=== PATIENT | female | born 1965 | race Caucasian/White ===

== ENCOUNTER 2017-02-16 18:38 | Observation (INO) ==
--- NOTE | 2017-02-16 18:53 | Emergency Department Note ---
Disposition Clinical Impression: Renal insufficiency, Uncontrolled hypertension, Headache, Blurry vision, bilateral, UTI (urinary tract infection), Chest pain, Cardiac murmur, Family history of hypertrophic cardiomyopathy Disposition: Admitted As Inpatient Referrals: Shabana Rodarte MD [Primary Care Provider] - General Adult HPI - General Stated complaint: blurry vision, jaw and shoulder pain Time Seen by Provider: 02/16/17 18:46 - History of Present Illness HPI Narrative: 51-year-old female reports emergency department concerned with left-sided chest pain radiating to the left arm started earlier today. The patient also describes blurry vision and headache. She has no history of coronary disease, DVT PE or cancer. The patient is not known to be diabetic. She does have a history of high blood pressure. The patient's has had no head trauma neck stiffness rash fever or convulsion no trouble walking talking hearing seeing or speaking. There is no history of runny nose or ear pain or sore throat. No cough coughing up blood leg swelling or pain or syncope. The patient denies abdominal pain vomiting or diarrhea. She has been somewhat anxious. There is no history of currently. 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 The pain in her left shoulder and chest are not associated with movement or breathing in and out. There is no history of slurred speech or confusion. There is no history of rash. The headache did not reach maximal intensity rapidly. She states her father has a history of HCOM, she denies any history of same, she has had an ultrasound in the past. The patient describes her vision is blurry, she does not usually wear contact lenses, she does not describe pain. There is no history of discharge redness or diplopia. The patient does not describe hemianopsia or difficulty moving the eyes. She states she thinks her high blood-pressure is affecting her vision. - Related Data Allergies Allergy/AdvReac Type Severity Reaction Status Date / Time ciprofloxacin [From Cipro] Allergy See Verified 02/16/17 19:34 Comments meperidine [From Demerol] Allergy Vomiting Verified 02/16/17 19:34 Tricyclic Compounds Allergy Rash Verified 02/16/17 19:34 All systems ED: reviewed and negative except as stated. Past Medical History - Past Medical History Medical history: Reports: hypertension Physical Exam - General Limitations: no limitations General appearance: alert, in no apparent distress - Head Head exam: atraumatic, normocephalic, normal inspection - Eye Eye exam: Present: normal appearance, PERRL, EOMI - ENT ENT exam: normal exam, normal oropharynx, mucous membranes moist, TM's normal bilaterally, normal external ear exam - Neck Neck exam: Present: normal inspection, full ROM, trachea midline. Absent: tenderness - Chest Chest inspection: Present: symmetric chest wall rise. Absent: tenderness - Respiratory Respiratory exam: Present: normal lung sounds bilaterally. Absent: respiratory distress, accessory muscle use, prolonged expiratory phase - Cardiovascular Cardiovascular exam: Present: regular rate, normal rhythm, systolic murmur - Abdominal Exam Abdominal exam: Present: soft, Non-Tender, normal bowel sounds. Absent: tenderness, distention, guarding, rebound, rigidity, pulsatile mass - Extremities Exam Extremities exam: Present: normal inspection, full ROM, normal capillary refill. Absent: tenderness, pedal edema, joint swelling, calf tenderness - Expanded Lower Extremity Exam Lower leg exam: Absent: Homans' sign Neurovascular/Tendon exam: Present: normal capillary refill. Absent: motor deficit, sensory deficit, tendon deficit, extremity cold to touch, pallor - Back Exam Back exam: Present: normal inspection, full ROM. Absent: tenderness, CVA tenderness (R), CVA tenderness (L), vertebral tenderness - Neurological Exam Neurological exam: Present: alert, oriented X3, CN II-XII intact. Absent: motor sensory deficit - Psychiatric Psychiatric exam: Present: normal affect, normal mood - Skin Skin exam: Present: warm, dry, intact, normal color. Absent: rash, cyanosis, diaphoresis, erythema, pallor, mottled Course Vital Signs Temperature 98.3 F 02/16/17 18:43 Pulse Rate 91 02/16/17 18:43 Respiratory Rate 16 02/16/17 18:43 Blood Pressure 185/122 02/16/17 18:43 O2 Sat by Pulse Oximetry 100 02/16/17 18:43 Temperature 98.3 F 02/16/17 18:43 Pulse Rate 62 02/16/17 21:08 Respiratory Rate 16 02/16/17 21:08 Blood Pressure 146/95 02/16/17 21:08 O2 Sat by Pulse Oximetry 100 02/16/17 21:08 Oxygen Delivery Oxygen Delivery Room Air Medical Decision Making - MDM Narrative Medical decision making narrative: The patient is expressing chest pain radiating to the left. The patient's blood pressure is significantly elevated. She has also had blurry vision. Her symptomatology may be secondary to elevated blood pressure however the differential is complex. Initial CT scans with IV contrast were ordered to evaluate the vasculature of the brain and neck and chest over the patient's creatinine was elevated so this was deferred. CT head without contrast negative , chest x-ray negative. EKG negative, cardiac labs negative. Aspirin ordered. Given the patient has essentially uncontrolled hypertension, neurologic symptomatology and chest pain with no previous cardiac stress test or heart catheter, I thought it would be appropriate to admit the patient for further evaluation. In addition the patient appears to have a UTI, her father has a history of hypertropic cardiomyopathy and the patient has a heart murmur on auscultation, she states the heart murmur is new. Labetalol was given in the ED as well as Dilaudid and Zofran. The patient's blood pressure did decrease to a significant degree. Rocephin ordered IV. I discussed the case with the hospitalist on-call who has excepted the patient to their care. The patient is currently stable. - Lab Data Lab results reviewed: Yes I reviewed the patient's lab results. Result diagrams: 02/16/17 18:53 02/16/17 18:53 Lab Results 02/16/17 02/16/17 02/16/17 Range/Units 18:50 18:53 18:53 WBC 4.8 (4.3-11.1) K/mcL RBC 4.84 (3.82-4.97) M/mcL Hgb 14.1 (11.5-15.4) g/dL Hct 42.6 (35.3-44.9) % MCV 88.0 (83.0-100.0) fL MCH 29.1 (28.0-33.3) pg MCHC 33.1 (31.6-35.5) g/dL RDW 12.9 (11.5-14.5) % Plt Count 152 (140-400) K/mcL MPV 10.6 (9.4-12.4) fL Immature Gran % 0.4 (0-4) % Seg Neutrophils % 61.0 % Lymphocytes % 29.8 % Monocytes % 6.9 % Eosinophils % 1.5 % Basophils % 0.4 % Neutrophils # 2.9 (1.6-8.9) K/mcL Lymphocytes # 1.4 (0.6-4.6) K/mcL Monocytes # 0.3 (0.0-1.3) K/mcL Eosinophils # 0.1 (0.0-0.6) K/mcL Basophils # 0.0 (0.0-0.2) K/mcL Sodium (136-145) mEq/L Potassium (3.5-4.5) mEq/L Chloride (98-109) mEq/L Carbon Dioxide (19-29) mEq/L BUN (7-20) mg/dL Creatinine (0.57-1.11) mg/dL Est GFR ( Amer) (> 60) Est GFR (Non-Af Amer) (> 60) BUN/Creatinine Ratio (6-26) Glucose (70-99) mg/dL Calculated Osmolality (280-300) Lactic Acid 1.4 (0.5-2.2) mmol/L Calcium (8.6-10.8) mg/dL Magnesium (1.6-2.6) mg/dL Total Bilirubin (0.2-1.2) mg/dL Direct Bilirubin (0.0-0.5) mg/dL Indirect Bilirubin (0.0-1.2) mg/dL AST (5-34) Units/L ALT (0-55) Units/L Alkaline Phosphatase (38-126) Units/L Troponin I 0.00 (0-0.03) ng/mL C-Reactive Protein (Less than 5) mg/L Serum Total Protein (6.0-8.3) g/dL Albumin (3.5-5.0) g/dL Globulin (2.4-3.5) g/dL Albumin/Globulin Ratio (1.1-2.2) Lipase (8-78) Units/L Urine Color (Yellow) Urine Clarity (Clear) Urine pH (5.0-8.0) pH Units Ur Specific [place] (1.010-1.025) Urine Protein (Neg-Trace) mg/dL Urine Glucose (UA) (Normal) mg/dL Urine Ketones (Negative) mg/dL Urine Blood (Negative) Urine Nitrite (Negative) Urine Bilirubin (Negative) Urine Urobilinogen (Normal) mg/dL Ur Leukocyte Esterase (Negative) Urine Microscopic RBC (0-3) per hpf Urine Microscopic WBC (0-3) per hpf Ur Squamous Epith Cells (None-Few) per lpf Urine Bacteria (None-Few) per hpf Hyaline Casts (None-Few) per lpf Ur Culture Indicated? (NO) Urine Opiates Screen (Rclpfi=989) ng/mL Ur Barbiturates Screen (Lzbthw=511) ng/mL Ur Phencyclidine Scrn (Cutoff=25) ng/mL Ur Amphetamines Screen (Ztisds=5859) ng/mL U Benzodiazepines Scrn (Yfxjpf=631) ng/mL Urine Cocaine Screen (Cutoff= 300) ng/mL U Marijuana (THC) Screen (Cutoff = 50) ng/mL 02/16/17 02/16/17 02/16/17 Range/Units 18:53 19:30 19:30 WBC (4.3-11.1) K/mcL RBC (3.82-4.97) M/mcL Hgb (11.5-15.4) g/dL Hct (35.3-44.9) % MCV (83.0-100.0) fL MCH (28.0-33.3) pg MCHC (31.6-35.5) g/dL RDW (11.5-14.5) % Plt Count (140-400) K/mcL MPV (9.4-12.4) fL Immature Gran % (0-4) % Seg Neutrophils % % Lymphocytes % % Monocytes % % Eosinophils % % Basophils % % Neutrophils # (1.6-8.9) K/mcL Lymphocytes # (0.6-4.6) K/mcL Monocytes # (0.0-1.3) K/mcL Eosinophils # (0.0-0.6) K/mcL Basophils # (0.0-0.2) K/mcL Sodium 140 (136-145) mEq/L Potassium 3.8 (3.5-4.5) mEq/L Chloride 104 (98-109) mEq/L Carbon Dioxide 25 (19-29) mEq/L BUN 16 (7-20) mg/dL Creatinine 1.49 H (0.57-1.11) mg/dL Est GFR ( Amer) 44 L (> 60) Est GFR (Non-Af Amer) 37 L (> 60) BUN/Creatinine Ratio 11 (6-26) Glucose 129 H (70-99) mg/dL Calculated Osmolality 293 (280-300) Lactic Acid (0.5-2.2) mmol/L Calcium 9.8 (8.6-10.8) mg/dL Magnesium 2.4 (1.6-2.6) mg/dL Total Bilirubin 0.6 (0.2-1.2) mg/dL Direct Bilirubin 0.2 (0.0-0.5) mg/dL Indirect Bilirubin 0.4 (0.0-1.2) mg/dL AST 16 (5-34) Units/L ALT 11 (0-55) Units/L Alkaline Phosphatase 116 (38-126) Units/L Troponin I (0-0.03) ng/mL C-Reactive Protein 4 (Less than 5) mg/L Serum Total Protein 8.1 (6.0-8.3) g/dL Albumin 4.4 (3.5-5.0) g/dL Globulin 3.7 H (2.4-3.5) g/dL Albumin/Globulin Ratio 1.2 (1.1-2.2) Lipase 17 (8-78) Units/L Urine Color Yellow (Yellow) Urine Clarity Clear (Clear) Urine pH 6.0 (5.0-8.0) pH Units Ur Specific [place] 1.011 (1.010-1.025) Urine Protein Negative (Neg-Trace) mg/dL Urine Glucose (UA) Normal (Normal) mg/dL Urine Ketones Negative (Negative) mg/dL Urine Blood Negative (Negative) Urine Nitrite Positive A (Negative) Urine Bilirubin Negative (Negative) Urine Urobilinogen Normal (Normal) mg/dL Ur Leukocyte Esterase Small H (Negative) Urine Microscopic RBC 5-15 H (0-3) per hpf Urine Microscopic WBC 15-30 H (0-3) per hpf Ur Squamous Epith Cells Many H (None-Few) per lpf Urine Bacteria Many H (None-Few) per hpf Hyaline Casts None Seen (None-Few) per lpf Ur Culture Indicated? YES A (NO) Urine Opiates Screen Negative (Nuezjf=427) ng/mL Ur Barbiturates Screen Negative (Wbdbqf=970) ng/mL Ur Phencyclidine Scrn Negative (Cutoff=25) ng/mL Ur Amphetamines Screen Negative (Fecjky=8710) ng/mL U Benzodiazepines Scrn Negative (Osxtae=025) ng/mL Urine Cocaine Screen Negative (Cutoff= 300) ng/mL U Marijuana (THC) Screen Negative (Cutoff = 50) ng/mL - Radiology Data Radiology results reviewed: Yes I reviewed the patient's radiology results.
[2017-02-16 19:03] LABS: Basophils % 0.4 %; Eosinophils # 0.1 K/mcL (0.0-0.6); Eosinophils % 1.5 %; Hematocrit 42.6 % (35.3-44.9); Hemoglobin 14.1 g/dL (11.5-15.4); Immature Granulocytes % 0.4 % (0-4); Lymphocytes # 1.4 K/mcL (0.6-4.6); Lymphocytes % 29.8 %; Mean Corpuscular HGB Conc 33.1 g/dL (31.6-35.5); Mean Corpuscular Hemoglobin 29.1 pg (28.0-33.3); Mean Platelet Volume 10.6 fL (9.4-12.4); Monocytes # 0.3 K/mcL (0.0-1.3); Monocytes % 6.9 %; Neutrophils # 2.9 K/mcL (1.6-8.9); Platelet Count 152 K/mcL (140-400); Red Blood Count 4.84 M/mcL (3.82-4.97); Red Cell Distribution Width 12.9 % (11.5-14.5)
[2017-02-16] MEDS ORDERED: *HR* HYDROmorphone (PF) 1 MG/ML SYRINGE IVP ONE ×2 (19:16→21:28)
[2017-02-16] MEDS ORDERED: Ondansetron 4 MG/2 ML VIAL IVP ONE (19:16)
[2017-02-16 19:21] LABS: Albumin 4.4 g/dL (3.5-5.0); Albumin/Globulin Ratio 1.2 (1.1-2.2); Bilirubin,Direct 0.2 mg/dL (0.0-0.5); Bilirubin,Indirect 0.4 mg/dL (0.0-1.2); Bilirubin,Total 0.6 mg/dL (0.2-1.2); Calcium 9.8 mg/dL (8.6-10.8); Globulin 3.7 g/dL (2.4-3.5); Magnesium 2.4 mg/dL (1.6-2.6); Potassium 3.8 mEq/L (3.5-4.5); Total Protein 8.1 g/dL (6.0-8.3)
[2017-02-16] MEDS ORDERED: 0.9 % Sodium Chloride 1,000 ML IVC ONE (19:22)
[2017-02-16 19:42] LABS: Bilirubin,Urine Negative (Negative); Blood,Urine Negative (Negative); Clarity,Urine Clear (Clear); Color,Urine Yellow (Yellow); Glucose,Urine (UA) Normal (Normal); Ketones,Urine Negative (Negative); Leukocyte Esterase,Urine Small (Negative); Nitrite,Urine Positive (Negative); Protein,Urine Negative (Neg-Trace); Specific Gravity,Urine 1.011 (1.010-1.025); Urobilinogen,Urine Normal (Normal)
[2017-02-16 19:43] LABS: Bacteria,Urine Many per hpf (None-Few); Hyaline Casts,Urine None Seen per lpf (None-Few); Squamous Epithelial Cell,Urine Many per lpf (None-Few); WBC,Urine 15-30 per hpf (0-3)
[2017-02-16 19:47] LABS: Amphetamine Screen,Urine Negative ng/mL (Cutoff=1000); Barbiturate Screen,Urine Negative ng/mL (Cutoff=200); Benzodiazepines Screen,Urine Negative ng/mL (Cutoff=200); Cannabinoid Screen,Urine Negative ng/mL (Cutoff = 50); Cocaine Screen,Urine Negative ng/mL (Cutoff= 300); Opiate Screen,Urine Negative ng/mL (Cutoff=300); Phencyclidine Screen,Urine Negative ng/mL (Cutoff=25)
[2017-02-16] MEDS ORDERED: *HR* Labetalol 20 MG/4 ML SYRINGE IVP ONE (20:17)
[2017-02-16] MEDS ORDERED: Aspirin 325 MG TABLET PO ONE (21:19)
--- NOTE | 2017-02-16 22:03 | Internal Med History&Physical ---
<ValentinDougienabil R - Last Filed: 02/17/17 05:09> Date of Encounter: 02/16/17 Internal Medicine - H&P: HPI History of present illness: Ms. Augustine is a 51 year old female Internal Medicine - H&P: Meds Albuterol Sulfate [Proair Hfa] 2 puff IH Q4-6H PRN 02/16/17 [History] Bupropion HCl [Wellbutrin Xl] 450 mg PO HS 02/16/17 [History] CloNIDine HCl 0.1 mg PO HS 02/16/17 [History] Gabapentin [Neurontin] 300 mg PO BID 02/16/17 [History] Meloxicam [Mobic] 15 mg PO HS 02/16/17 [History] OxyCODONE/APAP 10/325 [Percocet 10/325 MG] 7.5 mg PO Q6HR PRN 02/16/17 [History] Tizanidine HCl 4 - 8 mg PO TID PRN 02/16/17 [History] Calcium Carbonate [Calcium] 1,200 mg PO HS 02/17/17 [History] Fexofenadine HCl [Allergy Relief] 180 mg PO HS 02/17/17 [History] Lisinopril [Zestril] 20 mg PO HS 02/17/17 [History] Multivitamin [One Daily Essential] 1 each PO HS 02/17/17 [History] OxyCODONE/APAP 7.5/325 [Percocet 7.5/325 MG] 1 each PO Q6HR PRN 02/17/17 [ History] Temazepam [Restoril] 30 mg PO HS 02/17/17 [History] Allergies ciprofloxacin [From Cipro] Allergy (Verified 02/16/17 19:34) See Comments meperidine [From Demerol] Allergy (Verified 02/16/17 19:34) Vomiting Tricyclic Compounds Allergy (Verified 02/16/17 19:34) Rash All Systems PM: A 10-system review of systems was performed and is negative for pertinent findings except as documented above in the HPI. - Constitutional Vitals: Temp Pulse Resp BP Pulse Ox 97.9 F 61 18 169/90 97 02/17/17 02:32 02/17/17 02:32 02/17/17 02:32 02/17/17 02:32 02/17/17 02:32 Internal Med - H&P Results - Labs CBC & Chem 7: 02/16/17 18:53 02/16/17 18:53 - Attending Attestation I performed history and physical examination of the patient and discussed management with the Resident. I reviewed the Residents note and agree with documented findings and plan of care. 51 Y/F with h/o Fibromyalgia, HTN presents with left shoulder pain with radiation to the left arm, constant since staring this afternoon. Had sharp chest pain while she was in the CT scan. Reports facial pain / headache and jaw pain. Family h/o CAD grand father of heart attack (?age); grand mother had CAD. O/E: Cardiac: Regular rate and rhythm. Systolic murmur present. Lungs clear to auscultation. There is tenderness in the frontal area bilaterally and right maxillary area. No neck stiffness. No tenderness of the shoulder, movements not restricted. EKG personally reviewed by me shows some sinus rhythm and T wave inversion in lead 3. CXR and CT head are negative. Troponin is negative. Urinalysis is positive for UTI. A/P: Chest pain / shoulder pain: Atypical. Cardiac monitoing. Trend troponin if negative, consider cardiac stress test. X-ray of the left shoulder. Facial pain: CT head is negative for sinusitis. Denies recent h/o migraines. Monitor UTI: started on ceftriaxone <Poncho Gordon - Last Filed: 02/17/17 09:37> Date of Encounter: 02/16/17 Time of Encounter: 22:03 Assessment and Plan (1) Headache Current visit: Yes Status: Acute -Frontal Bilateral, constant sharp pain. Diffused. No FNLD and CT head normal -Tension headache? However, tension RAMSEY normally not sharp. Doubt cluster headache, not complaining of sharp stabbing pain in one eye and not unilateral. Migraine? Is senstive to light and history of migraine RAMSEY. Pain is reproducible on palpation, however doubt sinus infection-no fever, WBC, recent infection. -Has improved since admission and pain control Plan -d/c dilaudid and give tramadol due to renal function -Continue fluids -If not improved with tramadol, then consider RAMSEY cocktail. Qualifiers: Headache type: unspecified Headache chronicity pattern: unspecified pattern Intractability: intractable Qualified Code(s): R51 - Headache (2) Uncontrolled hypertension Current visit: Yes Status: Acute -Was 180's/120's in ED. Has improved with labetalol, pain medication, fluids. -Takes MARY and clonidine at home. States she is compliant. Does not know home medications or dose -Need to call [facility] on [address] to restart home medications -Has been under a lot of stress lately. -HTN most likely from stress vs dehydration vs pain vs medication adjustment needed. Plan -Hold clonidine for now. Continue labetalol and fluids. -residential monitor -Get home medication confirmation at [facility] (in morning) (3) Blurry vision, bilateral Current visit: Yes Status: Acute -CT head normal. No FNLD and passed vision test. Has improved since admission to hospital, but currently present -Doubt Multiple sclerosis, acute intracranial pathology, mass effect, infections source. Plan -Continue current plan. No neurology consult needed at this time. (4) UTI (urinary tract infection) Current visit: Yes Status: Acute -Discovered on UA. Hx kidney stones. Elevated Cr. Asymptomatic. However, will treat. Plan -Continue IV rocephin 1g q 12. -Consider oral abx if hospital stay <3d Qualifiers: Urinary tract infection type: site unspecified Hematuria presence: without hematuria Qualified Code(s): N39.0 - Urinary tract infection, site not specified (5) Chest pain Current visit: Yes Status: Acute -EKG negative. Troponin 0 -Last a few minutes while getting CT of head. Anxiety related? -Patient does not have hx of CAD, no FHx of sudden cardiac , not a smoker. Lipids unknown -New murmur? Father with hx of HCOM. Last ECHO "few years ago" -Patient is not ACS rule out. No need for stress test or cardio consult at this time. Plan -ECHO, redraw trop, lipid panel -Telemetry monitoring Qualifiers: Chest pain type: unspecified Qualified Code(s): R07.9 - Chest pain, unspecified (6) Cardiac murmur Current visit: Yes Status: Acute -See above for CP -No history of previous IV drug use. FHx of HCOM Plan -ECHO (7) Family history of hypertrophic cardiomyopathy Current visit: Yes Status: Acute see above -echo (8) DVT prophylaxis Current visit: Yes Status: Acute -ER doctor had concern for dissection and patient complained of substernal chest pain that radiated to back for a few minutes. She is resting comfortably in bed. No FND, CP, SOB, hypotension so doubt dissection. However, will hold anticoagulation at this time. -Consider starting in the morning if patient still asymptomatic. (9) Renal insufficiency Current visit: Yes Status: Acute -Cr 1.26 on 12/30 and now 1.49. New baseline or acute problem? History of Kidney stones of uncontrolled HTN. -No complaints of flank pain or urinary symptoms -Does take MARY at home. Unknown drug or dose -Will use tramadol at this time for pain and hold off on ibuprofen and other renal toxic drugs -Will continue fluids. -Consider renal ultrasound if Cr not improve with fluids to evaluate for new renal pathology contributing to HTN and elevated Cr (10) Shoulder pain, left Current visit: Yes Status: Acute -Patient laying on L side during exam. Not in distress. Good range of motion. No pain on palpation. Normal strength in arms, hands. Peripheral pulses +2/4 Plan -No imaging or workup needed at this time. Qualifiers: Chronicity: acute Qualified Code(s): M25.512 - Pain in left shoulder Internal Medicine - H&P: HPI Chief complaint: Blurry Vision, Jaw and shoulder pain Admitted From: Emergency Dept Plans for Post Hospital Care: Home History of present illness: Ms. Augustine is a 51 year old female, PMH Fibromyalgia, HTN, c/c L sided shoulder pain radiating down L arm, bilateral blurry vision, headache. Around 2pm this afternoon while driving patient began to have L shoulder pain that radiated down arm. She then began to develop bilateral blurry vision then headache then L sided jaw pain. Headache discribed at bilateral, frontal, hurts from forehead to the maxillary sinuses. Described as sharp pain, constant. Nothing alleviates pain. Worse with applying pressure, photosensitivity. Hx of migraine RAMSEY. Blurry vision is whole vision field in both eyes. While undergoing CT of chest in the ED, patient began to develop substernal chest pain that radiated to the back that has since alleviated. No history or coronary disease, DVT, PE or cancer, diabetes. Admits to previous nausea. Currently denies weakness/parasthesia/FNLD/confusion/V/F/CP/SOB/ Jaw pain or neck pain/diarrhea/ abdominal pain/flank pain/urinary symptoms. Father has HCOM. Denies smoking or being previous smoker, alcohol use current or in past, no IV drug use. 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 Has been under a lot of stress lately. Past Med Surg Social Fam HX - Past Medical History Medical history: fibromyalgia, hypertension, other (ovarian cyst ) Psychiatric history: depression - Past Surgical History Surgical History: (4 times), cholecystectomy - Social History Smoking Status: Never smoker Alcohol use: none Drug use: none - Family History Mother Hx Family Cardiac Disorders: Yes (HTN) - Additional Family History Additional family history: Father has HCOM. No sudden in family. All Systems PM: A 10-system review of systems was performed and is negative for pertinent findings except as documented above in the HPI. - Constitutional Constitutional: as per HPI - EENT Eyes: change in vision, photophobia, no discharge, no pain - Cardiovascular Cardiovascular ROS IM: as per HPI - Respiratory Respiratory: as per HPI - Genitourinary Genitourinary: as per HPI - Neurological Neurological ROS: as per HPI - Psychiatric Psychiatric: as per HPI - Constitutional Vitals: Temp Pulse Resp BP Pulse Ox 98.3 F 65 16 144/99 100 02/16/17 18:43 02/16/17 21:40 02/16/17 21:58 02/16/17 21:58 02/16/17 21:40 General appearance: Present: A&O X 3, no acute distress, answers questions appropriately - Head Head exam: Present: atraumatic, normocephalic Additional comments: reproduce of pain with palpation of forehead,maxillary sinus. - Eye Eye exam: Present: PERRL, conjuntiva pink, sclera anicteric Pupils: Present: PERRL - Neck Neck exam general surgery: Present: supple, trachea midline. Absent: lymphadenopathy Additional comments: No carotid bruits. - Respiratory Respiratory exam: Present: CTAB. Absent: accessory muscle use, rales, rhonchi, wheezes - Cardiovascular Cardiovascular exam: Present: RRR Additional comments: Was told systolic murmur by physician. I personally could not hear a systolic murmur. - GI/Abdominal GI/Abdominal exam: Present: soft, no peritoneal signs. Absent: distended, tenderness - Extremities Exam Extremities exam: Present: normal inspection, warm, radial pulses palpable and symetrical. Absent: calf tenderness, cyanotic, pedal edema, tenderness Additional comments: patient laying on L side comfortably - Expanded Upper Extremities Exam Shoulder exam: Present: full ROM, normal inspection. Absent: abrasion, ecchymosis, erythema, swelling, tenderness Upper Arm exam: Present: normal inspection Elbow exam: Present: normal inspection Forearm wrist exam: Present: normal inspection Hand wrist exam: Present: normal inspection Vascular exam: Present: normal capillary refill - Neurological Exam Neurological exam: Present: alert, CN II-XII intact, oriented X3, reflexes normal, no focal deficits, strengths equal and symetr throughout, pronater drift. Absent: facial droop, speech deficit - Psychiatric Psychiatric exam: Present: normal affect, normal mood - Skin Skin exam: Present: dry, intact Internal Med - H&P Results - Labs CBC & Chem 7: 02/17/17 04:39 02/17/17 04:39 Labs: Short CBC 02/16/17 Range/Units 18:53 WBC 4.8 (4.3-11.1) K/mcL Hgb 14.1 (11.5-15.4) g/dL Hct 42.6 (35.3-44.9) % Plt Count 152 (140-400) K/mcL Neutrophils # 2.9 (1.6-8.9) K/mcL BMP 02/16/17 18:53 Sodium 140 Potassium 3.8 Chloride 104 Carbon Dioxide 25 BUN 16 Creatinine 1.49 H Glucose 129 H Calcium 9.8 Cardiac Enzymes 02/16/17 Range/Units 18:53 Troponin I 0.00 (0-0.03) ng/mL Liver Function 02/16/17 Range/Units 18:53 Total Bilirubin 0.6 (0.2-1.2) mg/dL Direct Bilirubin 0.2 (0.0-0.5) mg/dL AST 16 (5-34) Units/L ALT 11 (0-55) Units/L Alkaline Phosphatase 116 (38-126) Units/L Albumin 4.4 (3.5-5.0) g/dL Urine 02/16/17 Range/Units 19:30 Urine Color Yellow (Yellow) Urine Clarity Clear (Clear) Urine pH 6.0 (5.0-8.0) pH Units Ur Specific [place] 1.011 (1.010-1.025) Urine Protein Negative (Neg-Trace) mg/dL Urine Glucose (UA) Normal (Normal) mg/dL - Impressions ITS Impressions Chest X-Ray 02/16/17 19:41 IMPRESSION: No acute abnormality detected. D/ / Michael Mcarthur MD / Michael Mcarthur MD Interpreting Provider: Michael Mcarthur MD Head CT 02/16/17 19:41 IMPRESSION: No acute intracranial abnormality. D/ / Yair Kim MD / Yair Kim MD Interpreting Provider: Yair Kmi MD
[2017-02-16] MEDS ORDERED: Naloxone 0.4 MG/ML INJ IVP PRN (23:18)
[2017-02-16] MEDS ORDERED: Ondansetron 4 MG/2 ML VIAL IVP PRN (23:18)
[2017-02-16] MEDS ORDERED: *HR* Metoprolol 5 MG/5 ML VIAL IVP PRN (23:30)
[2017-02-16] MEDS ORDERED: Ibuprofen 600 MG TABLET PO PRN (23:52)
[2017-02-17] MEDS ORDERED: *HR* Labetalol 20 MG/4 ML SYRINGE IVP PRN (00:02)
[2017-02-17] MEDS ORDERED: traMADol 50 MG TABLET PO PRN (00:03)
[2017-02-17] MEDS ORDERED: *HR* HYDROmorphone (PF) 1 MG/ML SYRINGE IVP ONE (01:10)
[2017-02-17] MEDS: 0.9 % Sodium Chloride 1,000 ML IVC SCH ×2 (01:25→21:24)
[2017-02-17] MEDS: BuPROPion XL (24 HR) 150 MG TABLET PO SCH ×2 (02:36→21:23)
[2017-02-17] MEDS: Multivit/Ca/Min/Fe/FA 1 TAB TABLET PO SCH ×2 (02:36→21:22)
[2017-02-17] MEDS: Gabapentin 300 MG CAPSULE PO SCH ×3 (02:36→21:22)
[2017-02-17] MEDS: Temazepam 15 MG CAPSULE PO SCH ×2 (02:36→21:22)
[2017-02-17] MEDS: Lisinopril 20 MG TABLET PO SCH ×2 (02:36→21:23)
[2017-02-17] MEDS: tiZANidine 4 MG TABLET PO PRN ×2 (02:37→22:45)
[2017-02-17] MEDS: Loratadine 10 MG TABLET PO SCH ×2 (02:37→21:23)
[2017-02-17] MEDS: cloNIDine HCl 0.1 MG TABLET PO SCH ×2 (02:37→21:22)
[2017-02-17 05:28] LABS: Basophils % 0.5 %; Eosinophils # 0.1 K/mcL (0.0-0.6); Hematocrit 34.6 % (35.3-44.9); Immature Granulocytes % 0.3 % (0-4); Lymphocytes # 1.7 K/mcL (0.6-4.6); Lymphocytes % 43.4 %; Mean Corpuscular HGB Conc 32.7 g/dL (31.6-35.5); Mean Corpuscular Hemoglobin 29.7 pg (28.0-33.3); Mean Corpuscular Volume 91.1 fL (83.0-100.0); Mean Platelet Volume 11.2 fL (9.4-12.4); Monocytes # 0.2 K/mcL (0.0-1.3); Platelet Count 110 K/mcL (140-400); Red Cell Distribution Width 12.9 % (11.5-14.5); Segmented Neutrophils % 48.8 %
[2017-02-17 05:40] LABS: Calcium 8.7 mg/dL (8.6-10.8); Phosphorous 3.3 mg/dL (2.3-4.7); Potassium 3.2 mEq/L (3.5-4.5)
[2017-02-17 06:38] LABS: Hemoglobin 11.3 g/dL (11.5-15.4)
[2017-02-17 06:43] LABS: Platelet Estimate Slight Decrease (Normal)
[2017-02-17 08:52] LABS: Thyroid Stimulating Hormone 1.583 mcIU/mL (0.350-4.840)
[2017-02-17] MEDS ORDERED: Potassium Chloride Elixir 20 MEQ/15 ML UDC PO SCH (09:00)
--- NOTE | 2017-02-17 10:09 | ECHO - Doppler Report ---
Echocardiogram Name: Lala Augustine Date of Study: 02/17/2017 Date: 1965 Ht: 62.0 in Medical Record#: [id number] Age: 51 Wt: 157.0 lb Gender: Female BSA: 1.72 Order #: [id number] Location: [facility] Room #: 3B34 Reading Physician: Marky Estevez DO, SHELIA MONTOYA Repairer Hairspring: Pedro Joy RDCS Ordering Physician: Poncho Gordon DO Primary Physician: Shabana Rodarte MD Indications: Chest pain, Murmur Impressions: LVEF 60-65%. Normal LV chamber size, wall thickness and function. Mild left ventricular diastolic dysfunction. Normal right ventricular structure and function. Mild tricuspid regurgitation. No pulmonary hypertension. Left Ventricular Wall Motion: Rest Echo Findings All wall segments showed normal motion. Findings: Study Quality * Technically adequate exam. ECG Findings * Sinus bradycardia. Left Ventricle * LVEF 60-65%. * Normal LV chamber size, wall thickness and function. * Mild left ventricular diastolic dysfunction. Right Ventricle * Normal right ventricular structure and function. Left Atrium * Mildly dilated left atrium. Right Atrium * Normal right atrial size. Interatrial Septum * No evidence of PFO by color Doppler. Aortic Valve * Trileaflet aortic valve with normal function. * No aortic regurgitation. * No aortic stenosis. Mitral Valve * Normal mitral valve structure and function. * No mitral stenosis. * Trace mitral regurgitation. Tricuspid Valve * Normal tricuspid valve structure. * Mild tricuspid regurgitation. * No pulmonary hypertension. Pulmonic Valve * Normal pulmonic valve structure and function. * Trace pulmonic regurgitation. Aorta * Normally sized aortic root. Pericardium * The pericardium appears normal. IVC * Normal IVC dimensions and inspiratory collapse. Pulmonary Artery * Normal visualized portions of the main pulmonary artery. History Hypertension Family History of CAD 08/21/11 a Previous Echo was performed. Measurements: BP: 91/ 62 2D Normal Values RVIDd: 2.73 cm <2.7 cm IVSd: .93 cm 0.6 - 1.0 cm LVIDd: 4.31 cm 3.7 - 5.6 cm LVPWd: .81 cm 0.6 - 1.1 cm LVIDs: 3.18 cm 1.5 - 3.6 cm AO: 2.50 cm < 4.0 cm LA: 3.50 cm 2.0 - 4.0cm %FS: 26.20 cm >25 % LA volume: 41 Mitral Valve Peak E:.78 m/sec Peak A:.80 m/sec E/A Ratio:1 Peak E' Lat Paul:12.9 cm/s Peak E' Med Paul:8.59 cm/s E/E' Lat Ratio:6.1 E/E' Med Ratio:9.1 Tricuspid Valve TV Regurg Peak Grad: 17.00mmHg TV Regurg Peak Paul: 2.08m/sec Updated by Marky Estevez DO, FACCourtney, SHELIA, FASSNEHA on 02/17/2017 10:04:28 AM electronically signed on 02/17/2017 10:05:24 AM with status of Final Wall Motion Hughes: 1=Normal, 2=Hypokinesis, 3=Akinesis, 4=Dyskinesis, 5=Aneurysmal, 6=Hyperkinetic, X=Not Visualized (Blank)=Missing
[2017-02-17] MEDS: *HR* OxyCODONE/APAP 7.5/325 TABLET PO PRN ×3 (10:16→22:45)
--- NOTE | 2017-02-17 14:26 | Electrocardiograph Report ---
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
--- NOTE | 2017-02-17 16:07 | Internal Med Progress Note ---
Date of Encounter: 02/17/17 Time of Encounter: 14:30 - Assessment and plan (1) Chest pain Current Visit: Yes Status: Acute Assessment and plan: During my interaction with her, patient was complaining of left-sided anterior chest pain, left-sided jaw pain, and right-sided headache with blurred vision. Patient had just received her by mouth pain medication and repeat was requesting IV pain medication. She specifically stated that she wanted to avoid morphine and Dilaudid. Dilaudid not indicated at this time. My interaction with her, patient was falling asleep mid sevens and appeared relatively heavily medicated. We will hold IV pain medications at this time and monitor. After she was told she would not be receiving IV pain medication, patient stated that she would like to go home. She was unable to get her stress test today due to hypotension so it has been rescheduled for tomorrow. Patient encouraged to stay to try to figure out the source of her headache and her chest pain. Low suspicion for acute processes however will continue a stress test tomorrow. Chest x-ray negative. Head CT negative. Plain films of her left shoulder negative. Echocardiogram revealing ejection fraction of 60 mL 5% with mild diastolic dysfunction. Patient is euvolemic on examination and denies shortness of breath. ITS Impressions Chest X-Ray 02/16/17 19:41 IMPRESSION: No acute abnormality detected. D/ / Michael Mcarthur MD / Michael Mcarthur MD Interpreting Provider: Michael Mcarthur MD Head CT 02/16/17 19:41 IMPRESSION: No acute intracranial abnormality. D/ / Yair Kim MD / Yair Kim MD Interpreting Provider: Yair Kim MD Shoulder X-Ray 02/17/17 05:06 IMPRESSION: 1. No acute osseous abnormality. 2. Mild AC joint osteoarthritis. D/ / 02/17/2017 09:05:25 Jonel Erazo MD / Argenis Borjas Interpreting Provider: Jonel Erazo MD Qualifiers: Chest pain type: unspecified Qualified Code(s): R07.9 - Chest pain, unspecified (2) Headache Current Visit: Yes Status: Acute Assessment and plan: See prior note for chest pain. Head CT negative. Qualifiers: Headache type: unspecified Headache chronicity pattern: unspecified pattern Intractability: intractable Qualified Code(s): R51 - Headache (3) Blurry vision, bilateral Current Visit: Yes Status: Acute (4) CKD (chronic kidney disease) stage 3, GFR 30-59 ml/min Current Visit: Yes Status: Chronic Assessment and plan: Stable, we will continue to trend (5) Fibromyalgia Current Visit: Yes Status: Chronic Assessment and plan: Patient stating she has chronic and severe fibromyalgia and states that she takes Percocet 7.5 mg every 4 hours as needed at home. OARRS report checks out okay. (6) Uncontrolled hypertension Current Visit: Yes Status: Chronic Assessment and plan: Uncontrolled. At home, patient is on lisinopril 20 mg at bedtime, clonidine 0.1 mg at bedtime. Blood pressure elevated and uncontrolled upon arrival to the hospital. She was given IV labetalol in the emergency department. Slightly better controlled since admission except for this last reading which had her diastolic at 100. She was also in severe pain at that time, we will continue to address her pain and monitor her blood pressure. Will add amlodipine to her regimen. (7) UTI (urinary tract infection) Current Visit: Yes Status: Acute Assessment and plan: Continue ceftriaxone. Urine culture pending. Qualifiers: Urinary tract infection type: site unspecified Hematuria presence: without hematuria Qualified Code(s): N39.0 - Urinary tract infection, site not specified (8) Cardiac murmur Current Visit: Yes Status: Acute Assessment and plan: Echocardiogram unremarkable with ejection fraction of 60-65%. Stress test pending. (9) Family history of hypertrophic cardiomyopathy Current Visit: Yes Status: Chronic (10) DVT prophylaxis Current Visit: Yes Status: Acute Assessment and plan: Subcutaneous heparin ordered (11) Shoulder pain, left Current Visit: Yes Status: Acute Assessment and plan: Unclear causation at this time. Patient states pain is different than her regular pain. Plain films of her shoulder were unremarkable. Stress test tomorrow. Qualifiers: Chronicity: acute Qualified Code(s): M25.512 - Pain in left shoulder - Subjective Interval history: Patient is seen and examined. On examination, patient resting supine in bed. During my interaction with her, patient stating that she had just started to have left-sided chest pain that was followed by left-sided jaw pain and right- sided headache with blurred vision. Patient stating this is the same as her symptoms from yesterday. She states that these areas of pain or new not consistent with her chronic fibromyalgia pain. She also endorses mild shortness of breath with these episodes. - Constitutional Vitals: Temp Pulse Resp BP Pulse Ox 97.9 F 72 16 143/101 95 02/17/17 14:28 02/17/17 14:28 02/17/17 16:00 02/17/17 14:28 02/17/17 16:00 General appearance: Present: A&O X 3, pleasant, no acute distress, answers questions appropriately - Head Head exam: Present: atraumatic, normocephalic - Eye Eye exam: Present: PERRL, conjuntiva pink, sclera anicteric Pupils: Present: PERRL - Neck Neck exam general surgery: Present: supple, trachea midline. Absent: lymphadenopathy - Respiratory Respiratory exam: Present: CTAB. Absent: accessory muscle use, rales, respiratory distress, rhonchi, wheezes - Cardiovascular Cardiovascular exam: Present: RRR, +S1, +S2. Absent: diastolic murmur, gallop, rubs, systolic murmur - GI/Abdominal GI/Abdominal exam: Present: normal bowel sounds, soft, no peritoneal signs. Absent: distended, tenderness - Extremities Exam Extremities exam: Present: warm, radial pulses palpable and symetrical. Absent : calf tenderness, cyanotic, pedal edema - Neurological Exam Neurological exam: Present: alert, altered (Drowsy), CN II-XII intact, oriented X3, no focal deficits, strengths equal and symetr throughout. Absent: pronater drift, facial droop, speech deficit - Skin Skin exam: Present: dry, intact, normal color, warm Internal Medicine: Result - Labs CBC & Chem 7: 02/17/17 04:39 02/17/17 04:39 Labs: Short CBC 02/17/17 Range/Units 04:39 WBC 4.0 L (4.3-11.1) K/mcL Hgb 11.3 L D (11.5-15.4) g/dL Hct 34.6 L (35.3-44.9) % Plt Count 110 L (140-400) K/mcL Neutrophils # 2.0 (1.6-8.9) K/mcL BMP 02/17/17 04:39 Sodium 141 Potassium 3.2 L Chloride 107 Carbon Dioxide 26 BUN 14 Creatinine 1.47 H Glucose 185 H Calcium 8.7 Cardiac Enzymes 02/17/17 Range/Units 04:39 Troponin I 0.00 (0-0.03) ng/mL - Impressions Impressions Shoulder X-Ray 02/17/17 05:06 IMPRESSION: 1. No acute osseous abnormality. 2. Mild AC joint osteoarthritis. D/ / 02/17/2017 09:05:25 Jonel Erazo MD / Argenis Borjas Interpreting Provider: Jonel Erazo MD Consult Discharge Plan - Plan
[2017-02-17] MEDS: amLODIPine 5 MG TABLET PO SCH (17:01)
[2017-02-17] MEDS: *HR* Heparin 5,000 UNIT/ML VIAL SQ SCH (17:01)
[2017-02-18] MEDS: tiZANidine 4 MG TABLET PO PRN ×2 (00:16→16:04)
[2017-02-18] MEDS: *HR* Heparin 5,000 UNIT/ML VIAL SQ SCH ×2 (06:27→17:19)
[2017-02-18] MEDS: 0.9 % Sodium Chloride 1,000 ML IVC SCH ×2 (06:28→15:58)
[2017-02-18 06:33] LABS: Basophils % 0.2 %; Eosinophils # 0.1 K/mcL (0.0-0.6); Eosinophils % 2.2 %; Hematocrit 32.7 % (35.3-44.9); Hemoglobin 10.5 g/dL (11.5-15.4); Immature Granulocytes % 0.5 % (0-4); Lymphocytes # 1.6 K/mcL (0.6-4.6); Lymphocytes % 39.1 %; Mean Corpuscular HGB Conc 32.1 g/dL (31.6-35.5); Mean Corpuscular Hemoglobin 29.1 pg (28.0-33.3); Mean Corpuscular Volume 90.6 fL (83.0-100.0); Mean Platelet Volume 10.9 fL (9.4-12.4); Monocytes # 0.3 K/mcL (0.0-1.3); Monocytes % 6.8 %; Neutrophils # 2.1 K/mcL (1.6-8.9); Platelet Count 125 K/mcL (140-400); Red Blood Count 3.61 M/mcL (3.82-4.97); Segmented Neutrophils % 51.2 %
[2017-02-18 06:58] LABS: Calcium 8.3 mg/dL (8.6-10.8); Potassium 3.6 mEq/L (3.5-4.5)
[2017-02-18] MEDS: Gabapentin 300 MG CAPSULE PO SCH (07:53)
[2017-02-18] MEDS: *HR* OxyCODONE/APAP 7.5/325 TABLET PO PRN ×2 (07:54→16:04)
[2017-02-18] MEDS ORDERED: Ketorolac 30 MG/ML VIAL IVP PRN (08:37)
[2017-02-18] MEDS ORDERED: SUMAtriptan succinate 50 MG TABLET PO PRN (08:37)
--- NOTE | 2017-02-18 11:49 | Nuclear Medicine Stress Report ---
Exercise Nuclear Stress Name: Lala Augustine Date of Study: 02/17/2017 Date: 1965 Ht: 62.0 in Medical Record#: [id number] Age: 51 Wt: 158.0 lb Gender: Female Order #: [id number] Location: [facility] IP Room: Supervising Provider: Scott Campos CNP Reading Physician: Junaid Gan MD, [facility] Ordering Physician: Cecille Vazquez CNP Primary Care Physician: None Stress Technologist: Stefani Hensley NEWS LIBRARIAN, CCT Electric Serviceman: Ramiro Bridges Indications: Chest Pain Impression: The exercise capacity was average. Exercise ECG is negative for ischemia. Gated LVEF > 70%. Perfusion imaging was negative for ischemia or infarct. History: Hypertension Stress Test Summary: Stress Test Type: Treadmill Protocol: Rojelio Baseline Information: Initial Heart Rate: 58 Blood Pressure: 108/70 Stress Information: Stress Time: 7 min 00 sec Test Terminated Due to (primary): Dyspnea Fatigue Maximum Blood Pressure: 166/80 Maximum Heart Rate: 152 Percent Maximum Heart Rate Achieved: 91 Double Product: [id number] METS Reached: 10.1 Symptoms: Shortness of breath, No chest symptoms Nuclear Summary: SPECT myocardial perfusion imaging using Tc99m Sestamibi given intravenously was performed at rest and following cardiac stress testing. The resting images were obtained following initial dose of 10.6 mCi. Following stress an additional dose of 29.3 mCi was given at peak exercise or 30 seconds post regadenoson infusion. Findings: Stress Note * Resting ECG demonstrated sinus bradycardia (58 bpm). * No baseline arrhythmias were noted. * The exercise capacity was average. * Patient had no chest pain during stress. * No arrhythmias were noted during stress. * Exercise ECG is negative for ischemia. Hemodynamic responses * Normal hemodynamic responses to exercise. Study Quality * Study quality is good. Gated EF > 70% * Gated LVEF > 70%. Left Ventricle * The left ventricle is not dilated. * Normal Segmental Perfusion in rest. * Normal segmental perfusion in stress. TID * No evidence of transient ischemic dilatation. Updated by Junaid Gan MD, [facility] on 02/18/2017 11:42:31 AM electronically signed on 02/18/2017 11:43:00 AM with status of Final
[2017-02-18] MEDS: amLODIPine 5 MG TABLET PO SCH (13:25)
[2017-02-18 15:29] VITALS: BP 113/73
--- NOTE | 2017-02-18 17:24 | Discharge Summary ---
Date of Encounter: 02/18/17 Time of Encounter: 15:30 - Discharge Diagnosis (1) Chest pain Priority: Primary Status: Resolved Comments: Patient denied chest pain on day of discharge. ACS ruled out. Qualifiers: Chest pain type: unspecified Qualified Code(s): R07.9 - Chest pain, unspecified (2) Headache Priority: Primary Status: Acute Comments: Abated with Imitrex, will send home on sore supply. Head CT negative. Qualifiers: Headache type: unspecified Headache chronicity pattern: unspecified pattern Intractability: intractable Qualified Code(s): R51 - Headache (3) Blurry vision, bilateral Priority: Primary Status: Resolved (4) CKD (chronic kidney disease) stage 3, GFR 30-59 ml/min Priority: Secondary Status: Chronic Comments: Remained stable throughout this admission. Follow-up outpatient. (5) Fibromyalgia Priority: Secondary Status: Chronic (6) Uncontrolled hypertension Priority: Secondary Status: Chronic Comments: Uncontrolled. At home, patient is on lisinopril 20 mg at bedtime, clonidine 0.1 mg at bedtime. Blood pressure elevated and uncontrolled upon arrival to the hospital. She was given IV labetalol in the emergency department. Slightly better controlled since admission but still hypertensive at times associated with times when she was in pain. Amlodipine added to her regimen and she was normotensive on day of discharge. (7) UTI (urinary tract infection) Priority: Primary Status: Acute Comments: Preliminary culture gram-negative antolin. Treated with ceftriaxone while admitted. Patient is allergic to ciprofloxacin, will send home on Bactrim. We will call her if sensitivity report necessitates change of antibiotics. Qualifiers: Urinary tract infection type: site unspecified Hematuria presence: without hematuria Qualified Code(s): N39.0 - Urinary tract infection, site not specified (8) Cardiac murmur Priority: Primary Status: Ruled-out (9) Family history of hypertrophic cardiomyopathy Priority: Secondary Status: Chronic (10) DVT prophylaxis Priority: Primary Status: Acute Comments: Subcutaneous heparin while admitted (11) Shoulder pain, left Priority: Primary Status: Acute Comments: Patient denies shoulder pain on day of discharge. Plain films of her shoulder were unremarkable. Qualifiers: Chronicity: acute Qualified Code(s): M25.512 - Pain in left shoulder - Discharge Medications Prescriptions: Amlodipine [Norvasc] 5 mg PO DAILY #30 tablet Sulfamethoxazole/Trimeth DS [Bactrim DS] 1 each PO BID #14 tablet SUMAtriptan [Imitrex] 50 mg PO Q2H PRN #20 tablet PRN Reason: Migraine Headache Home Medications: Albuterol Sulfate [Proair Hfa] 2 puff IH Q4-6H PRN 02/16/17 [History] Bupropion HCl [Wellbutrin Xl] 450 mg PO HS 02/16/17 [History] CloNIDine HCl 0.1 mg PO HS 02/16/17 [History] Gabapentin [Neurontin] 300 mg PO BID 02/16/17 [History] Meloxicam [Mobic] 15 mg PO HS 02/16/17 [History] OxyCODONE/APAP 10/325 [Percocet 10/325 MG] 7.5 mg PO Q6HR PRN 02/16/17 [History] Tizanidine HCl 4 - 8 mg PO TID PRN 02/16/17 [History] Calcium Carbonate [Calcium] 1,200 mg PO HS 02/17/17 [History] Fexofenadine HCl [Allergy Relief] 180 mg PO HS 02/17/17 [History] Lisinopril [Zestril] 20 mg PO HS 02/17/17 [History] Multivitamin [One Daily Essential] 1 each PO HS 02/17/17 [History] OxyCODONE/APAP 7.5/325 [Percocet 7.5/325 MG] 1 each PO Q6HR PRN 02/17/17 [ History] Temazepam [Restoril] 30 mg PO HS 02/17/17 [History] Amlodipine [Norvasc] 5 mg PO DAILY #30 tablet 02/18/17 [Rx] SUMAtriptan [Imitrex] 50 mg PO Q2H PRN #20 tablet 02/18/17 [Rx] Sulfamethoxazole/Trimeth DS [Bactrim DS] 1 each PO BID #14 tablet 02/18/17 [Rx] Allergies/Adverse Reactions: Allergies ciprofloxacin [From Cipro] Allergy (Verified 02/16/17 19:34) See Comments meperidine [From Demerol] Allergy (Verified 02/16/17 19:34) Vomiting Tricyclic Compounds Allergy (Verified 02/16/17 19:34) Rash Procedures/tests Complete & Pending: Procedures Performed prior 72 hours Category Date Time Status NM isael perf SPECT multi [NM] Routine Exams 02/17/17 05:07 Taken EV echocardiogram Routine Y 02/17/17 23:22 Completed SP exercise nuclear stress Routine Y 02/18/17 Completed Date of admission: 02/16/17 22:13 Primary care physician: Shabana Rodarte MD Discharging clinician: Cecille Vazquez Anticipated date of discharge: 02/18/17 - Patient Status Disposition: Home, Self-Care Condition: Good Functional capacity at discharge: independent ambulation Overall status at discharge: patient is back to baseline - Discharge Instructions Follow Up With: Shabana Rodarte MD [Primary Care Provider] - 04/14/17 Sarahy Lawson CNP [Advanced Practice Nurse] - 03/05/17 8:30 am Forms: ED Satisfaction Letter Additional Instructions: Follow-up with primary care provider as scheduled - Diet and Activity Activity: increase activity as tolerated Diet: low salt diet Hospital course: Ms. Augustine is a 51 year old female with past medical history of fibromyalgia, hypertension. Patient presented to the emergency department chief complaint left-sided shoulder pain radiating down her left arm and associated with blurred vision, headache. Patient stating that while she was driving she began having left shoulder pain that radiated down her arm and then she began to develop blurred vision and a headache and then left-sided jaw pain. Headache was described as bilateral, frontal, and hurts from her forehead to her maxillary sinuses described as sharp and constant. While she was having her chest CT in the emergency department, patient began to develop substernally located chest pain that radiated to her back that was self-limiting. Workup in the emergency department unremarkable other than uncontrolled hypertension. Chest x-ray negative. Head CT negative. Plain films of shoulder unremarkable. Patient was admitted to the hospitalist service for further evaluation and management. Initially in the emergency department, she required IV medications to lower her blood pressure. She was then started on amlodipine during this admission and she was normotensive on day of discharge. Echocardiogram unremarkable with ejection fraction of 60-65%. Patient was euvolemic on examination throughout this admission and she denied shortness of breath above her norm. Headache and blurred vision resolved prior to discharge and was responsive to Imitrex medication. Of note, patient was asking for Dilaudid several times throughout this admission it was not indicated. Patient also had an exercise nuclear stress test that was negative. Acute coronary syndrome ruled out. Patient was also noted to have a urinary tract infection. Her limb and her urine culture consistent with GNR. Patient was treated with ceftriaxone while admitted and sent home on Bactrim (Cipro allergy). We will call her if sensitivity report necessitates a change to her antibiotic. She had no focal neurological weaknesses and was asymptomatic at time of discharge. She was discharged home in stable condition with close outpatient follow-up recommended. ITS Impressions Chest X-Ray 02/16/17 19:41 IMPRESSION: No acute abnormality detected. D/ / Michael Mcarthur MD / Michael Mcarthur MD Interpreting Provider: Michael Mcarthur MD Head CT 02/16/17 19:41 IMPRESSION: No acute intracranial abnormality. D/ / Yair Kim MD / Yair Kim MD Interpreting Provider: Yair Kim MD Shoulder X-Ray 02/17/17 05:06 IMPRESSION: 1. No acute osseous abnormality. 2. Mild AC joint osteoarthritis. D/ / 02/17/2017 09:05:25 Jonel Erazo MD / Argenis Borjas Interpreting Provider: Jonel Erazo MD Echocardiogram impressions: LVEF 60-65%. Normal LV chamber size, wall thickness and function. Mild left ventricular diastolic dysfunction. Normal right ventricular structure and function. Mild tricuspid regurgitation. No pulmonary hypertension. Exercise nuclear stress test impression: Exercise capacity was average. Exercise ECG was negative for ischemia. Gated LVEF greater than 70%. Perfusion imaging was negative for ischemia or infarct. - Time Spent with Patient Total time spent providing and/or coordinating discharge services: - Constitutional Vitals: Temp Pulse Resp BP Pulse Ox 98.1 F 73 15 113/73 93 02/18/17 15:28 02/18/17 15:28 02/18/17 15:28 02/18/17 15:28 02/18/17 15:28 General appearance: Present: A&O X 3, pleasant, no acute distress, answers questions appropriately - Head Head exam: Present: atraumatic, normocephalic - Eye Eye exam: Present: PERRL, conjuntiva pink, sclera anicteric Pupils: Present: PERRL - Neck Neck exam general surgery: Present: supple, trachea midline. Absent: lymphadenopathy - Respiratory Respiratory exam: Present: CTAB. Absent: accessory muscle use, rales, respiratory distress, rhonchi, wheezes - Cardiovascular Cardiovascular exam: Present: RRR, +S1, +S2. Absent: diastolic murmur, gallop, rubs, systolic murmur - GI/Abdominal GI/Abdominal exam: Present: normal bowel sounds, soft, no peritoneal signs. Absent: distended, tenderness - Extremities Exam Extremities exam: Present: warm, radial pulses palpable and symetrical. Absent : calf tenderness, cyanotic, pedal edema - Neurological Exam Neurological exam: Present: alert, CN II-XII intact, normal gait, oriented X3, no focal deficits, strengths equal and symetr throughout. Absent: pronater drift, facial droop, speech deficit - Skin Skin exam: Present: dry, intact, normal color, warm
== END 2017-02-18 18:57 | disposition home or self-care (01) ==
LOC: EMEROO 18:38 → 3BNU 18:38
PROVIDERS: ADMIT Internal Medicine; ATTEND Nurse Practitioner Family

== ENCOUNTER 2017-09-26 20:12 | Inpatient (IN) ==
[2017-09-26] MEDS ORDERED: 0.9 % Sodium Chloride 1,000 ML ONE ×2 (20:18→20:28)
[2017-09-26] MEDS: 0.9 % Sodium Chloride 1,000 ML IVC SCH ×2 (20:33→21:34)
[2017-09-26 20:37] LABS: Basophils # 0.1 K/mcL (0.0-0.2); Basophils % 0.6 %; Eosinophils % 0.1 %; Hematocrit 35.4 % (35.3-44.9); Hemoglobin 11.5 g/dL (11.5-15.4); Immature Granulocytes % 1.7 % (0-4); Lymphocytes # 1.6 K/mcL (0.6-4.6); Mean Corpuscular HGB Conc 32.5 g/dL (31.6-35.5); Mean Corpuscular Hemoglobin 29.2 pg (28.0-33.3); Mean Corpuscular Volume 89.8 fL (83.0-100.0); Mean Platelet Volume 12.1 fL (9.4-12.4); Neutrophils # 7.3 K/mcL (1.6-8.9); Platelet Count 185 K/mcL (140-400); Red Blood Count 3.94 M/mcL (3.82-4.97); Red Cell Distribution Width 13.9 % (11.5-14.5); Segmented Neutrophils % 71.6 %
[2017-09-26 20:42] LABS: INR 1.1; Prothrombin Time 11.9 Seconds (9.4-12.1)
[2017-09-26 20:45] LABS: Activated Partial Thrombo Time 24.3 Seconds (26.0-36.0)
--- NOTE | 2017-09-26 20:48 | Emergency Department Note ---
Disposition Clinical Impression: Septic shock, Elevated transaminase level UTI (urinary tract infection) Qualifiers: Urinary tract infection type: site unspecified Hematuria presence: with hematuria Qualified Code(s): N39.0 - Urinary tract infection, site not specified Pneumonia Qualifiers: Pneumonia type: due to unspecified organism Laterality: right Lung location: lower lobe of lung Qualified Code(s): J18.1 - Lobar pneumonia, unspecified organism Acute renal failure Qualifiers: Acute renal failure type: unspecified Qualified Code(s): N17.9 - Acute kidney failure, unspecified Disposition: Admitted As Inpatient Condition: Critical Referrals: NONE,PCP [Primary Care Provider] - Forms: ED Satisfaction Letter Time of Disposition: 22:27 Syncope HPI - General Chief Complaint: ED Syncope Stated Complaint: syncope Time Seen by Provider: 09/26/17 20:17 Source: patient, family Mode of arrival: private vehicle Limitations: no limitations Nursing Notes Reviewed: Yes Vital Signs Reviewed: Yes - History of Present Illness HPI Narrative: 51-year-old female with recent diagnosis of stage III kidney disease, arrives [facility] emergency department after experiencing diarrhea over the course of the past few days. Unknown episodes but has had numerous episodes the point where she is actually having to go into the shower to clean herself off. There was one noted dark stool. The patient is experiencing no abdominal pain to her significant other with the exception of one episode earlier today. The patient noted to have multiple episodes episodes of syncope including 3 that were noted by the . The last one was an attempt to get the patient to the bathroom. With the patient collapsed in his arms. The patient denies any dysuria, difficulty breathing. Her brings her to the emergency department for evaluation. In triage the patient was noted to have a systolic blood pressure of 50. The patient was immediately taken back to our room and evaluated. 2 IVs were initially placed and 2 L of IV fluids were obtained. The patient was placed on a monitor. Bedside ultrasound reveals no enlargement of her aorta. The patient is experiencing some abdominal pain on examination. The patient is mentating but states that she is having fuzzy vision and is slightly slow on conversation. 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) Context: getting out of bed Injuries Sustained Associated with Event: none Current Symptoms: lightheaded, nausea, abdominal pain, weakness History: none Treatments prior to arrival: none Associated trauma secondary to event: No - Related Data Home Medications Medication Instructions Recorded Confirmed Albuterol Sulfate [Proair Hfa] 2 puff IH Q4-6H PRN 02/16/17 02/16/17 Bupropion HCl [Wellbutrin Xl] 450 mg PO HS 02/16/17 02/17/17 Gabapentin [Neurontin] 300 mg PO BID 02/16/17 02/16/17 Meloxicam [Mobic] 15 mg PO HS 02/16/17 02/17/17 OxyCODONE/APAP 10/325 [Percocet 7.5 mg PO Q6HR PRN 02/16/17 10/325 MG] Tizanidine HCl 4 - 8 mg PO TID PRN 02/16/17 02/16/17 cloNIDine HCl [CloNIDine HCl] 0.1 mg PO HS 02/16/17 02/17/17 Calcium Carbonate [Calcium] 1,200 mg PO HS 02/17/17 02/17/17 Fexofenadine HCl [Allergy Relief] 180 mg PO HS 02/17/17 02/17/17 Lisinopril [Zestril] 20 mg PO HS 02/17/17 02/17/17 Multivitamin [One Daily Essential] 1 each PO HS 02/17/17 02/17/17 OxyCODONE/APAP 7.5/325 [Percocet 1 each PO Q6HR PRN 02/17/17 02/17/17 7.5/325 MG] Temazepam [Restoril] 30 mg PO HS 02/17/17 02/17/17 Previous Rx's Medication Instructions Recorded SUMAtriptan succinate [Imitrex] 50 mg PO Q2H PRN #20 tablet 02/18/17 Sulfamethoxazole/Trimeth DS 1 each PO BID #14 tablet 02/18/17 [Bactrim DS] amLODIPine [Norvasc] 5 mg PO DAILY #30 tablet 02/18/17 Allergies Allergy/AdvReac Type Severity Reaction Status Date / Time ciprofloxacin [From Cipro] Allergy See Verified 02/23/17 16:38 Comments meperidine [From Demerol] Allergy Vomiting Verified 02/23/17 16:38 Tricyclic Compounds Allergy Rash Verified 02/23/17 16:38 All systems ED: reviewed and negative except as stated. Constitutional: Reports: weakness. Denies: fever, chills ENT ED: Denies: congestion Cardiovascular: Reports: syncope. Denies: chest pain Respiratory: Denies: dyspnea Gastrointestinal: Reports: abdominal pain, nausea, diarrhea. Denies: vomiting, constipation, hematemesis, melena, hematochezia Genitourinary: Denies: urgency, dysuria Musculoskeletal: Denies: back pain Integumentary: Denies: rash Neurological: Reports: weakness Past Medical History - Past Medical History Attestation: Yes The following information was validated with the patient. Source: patient, obtained from family Medical history: Reports: fibromyalgia, hypertension, renal disease, other Surgical history: Reports: (4 times), cholecystectomy Psychiatric history: Reports: depression - Social History Smoking Status: Never smoker Smokeless Tobacco Status: No Alcohol use: Reports: none Drug use: Reports: none Physical Exam - General Limitations: no limitations General appearance: in no apparent distress, lethargic - Head Head exam: atraumatic, normocephalic, normal inspection - Eye Eye exam: Present: normal appearance, PERRL, EOMI - ENT ENT exam: normal exam, normal oropharynx, mucous membranes moist - Neck Neck exam: Present: normal inspection, full ROM, trachea midline - Chest Chest inspection: Present: normal inspection, symmetric chest wall rise - Respiratory Respiratory exam: Present: normal lung sounds bilaterally - Cardiovascular Cardiovascular exam: Present: regular rate, normal rhythm, normal heart sounds - Abdominal Exam Abdominal exam: Present: soft, tenderness (Diffuse). Absent: distention, guarding, rebound, rigidity, heel tap sign, Moses's sign, Rovsing's sign, tenderness at McBurney's Point - Extremities Exam Extremities exam: Present: normal inspection, full ROM. Absent: tenderness, pedal edema - Neurological Exam Neurological exam: Present: alert, oriented X3 - Skin Skin exam: Present: warm, dry, intact, normal color Course - Consultations Consultation #1: I spoke to Dr. Minor in nephrology who agrees that the patient should be hydrated. They will be consulted on the patient. No further recommendations given at this time. Time: 21:54 Vital Signs Temperature 98.4 F 09/26/17 20:14 Pulse Rate 98 09/26/17 20:14 Respiratory Rate 14 09/26/17 20:14 Blood Pressure 50/34 09/26/17 20:14 O2 Sat by Pulse Oximetry 96 09/26/17 20:14 Temperature 99.0 F 09/26/17 20:44 Pulse Rate 93 09/26/17 22:12 Respiratory Rate 16 09/26/17 22:12 Blood Pressure 95/71 09/26/17 22:12 O2 Sat by Pulse Oximetry 97 09/26/17 22:12 Oxygen Delivery Oxygen Delivery Room Air Syncope - [facility] Narrative Medical decision making narrative: Patient's workup in the emergency department demonstrates right basilar pneumonia, urinary tract infection and diffuse colitis. The patient has had improvement of her blood pressure and has been very responsive to fluids. The patient's mentation has continued to improve. The patient's workup demonstrates acute renal failure with a GFR of 3. The patient does have a history of CKD stage III. We consulted nephrology who recommended aggressive hydration at this time. The patient was started on vancomycin and Zosyn with concern for septic shock as the patient was hypotensive. The patient has elevated transaminases as well. We will admit the patient to the hospitalist for further care and workup, accepted by Dr. Madrid. - Lab Data Lab results reviewed: Yes I reviewed the patient's lab results. Result diagrams: 09/26/17 20:26 09/26/17 20:26 Lab Results 09/26/17 09/26/17 09/26/17 Range/Units 20:26 20:26 20:26 WBC 10.2 (4.3-11.1) K/mcL RBC 3.94 (3.82-4.97) M/mcL Hgb 11.5 (11.5-15.4) g/dL Hct 35.4 (35.3-44.9) % MCV 89.8 (83.0-100.0) fL MCH 29.2 (28.0-33.3) pg MCHC 32.5 (31.6-35.5) g/dL RDW 13.9 (11.5-14.5) % Plt Count 185 (140-400) K/mcL MPV 12.1 (9.4-12.4) fL Immature Gran % 1.7 (0-4) % Seg Neutrophils % 71.6 % Lymphocytes % 16.0 % Monocytes % 10.0 % Eosinophils % 0.1 % Basophils % 0.6 % Neutrophils # 7.3 (1.6-8.9) K/mcL Lymphocytes # 1.6 (0.6-4.6) K/mcL Monocytes # 1.0 (0.0-1.3) K/mcL Eosinophils # 0.0 (0.0-0.6) K/mcL Basophils # 0.1 (0.0-0.2) K/mcL Reactive Lymphocytes Present A (Not Present) Platelet Estimate Normal (Normal) PT 11.9 (9.4-12.1) Seconds INR 1.1 APTT 24.3 L (26.0-36.0) Seconds Sodium 137 (136-145) mEq/L Potassium 4.6 H (3.5-4.5) mEq/L Chloride 100 (98-109) mEq/L Carbon Dioxide 14 L (19-29) mEq/L BUN 123 H (7-20) mg/dL Creatinine 12.99 H (0.57-1.11) mg/dL Est GFR ( Amer) 4 L (> 60) Est GFR (Non-Af Amer) 3 L (> 60) BUN/Creatinine Ratio 9 (6-26) Glucose 124 H (70-99) mg/dL Calculated Osmolality 325 H (280-300) Lactic Acid (0.5-2.2) mmol/L Calcium 9.6 (8.6-10.8) mg/dL Magnesium 2.8 H (1.6-2.6) mg/dL Total Bilirubin 0.5 (0.2-1.2) mg/dL Direct Bilirubin 0.2 (0.0-0.5) mg/dL Indirect Bilirubin 0.3 (0.0-1.2) mg/dL AST 155 H (5-34) Units/L ALT 147 H (0-55) Units/L Alkaline Phosphatase 135 H (38-126) Units/L Troponin I (0-0.03) ng/mL Serum Total Protein 7.7 (6.0-8.3) g/dL Albumin 2.8 L (3.5-5.0) g/dL Globulin 4.9 H (2.4-3.5) g/dL Albumin/Globulin Ratio 0.6 L (1.1-2.2) Lipase 21 (8-78) Units/L Urine Color (Yellow) Urine Clarity (Clear) Urine pH (5.0-8.0) pH Units Ur Specific [place] (1.010-1.025) Urine Protein (Neg-Trace) mg/dL Urine Glucose (UA) (Normal) mg/dL Urine Ketones (Negative) mg/dL Urine Blood (Negative) Urine Nitrite (Negative) Urine Bilirubin (Negative) Urine Urobilinogen (Normal) mg/dL Ur Leukocyte Esterase (Negative) Urine Microscopic RBC (0-3) per hpf Urine Microscopic WBC (0-3) per hpf Ur Squamous Epith Cells (None-Few) per lpf Amorphous Sediment (Few) Urine Bacteria (None-Few) per hpf Hyaline Casts (None-Few) per lpf Ur Culture Indicated? (NO) Stool Occult Blood (Negative) Specimen Rejected Blood Type Antibody Screen 09/26/17 09/26/17 09/26/17 Range/Units 20:26 20:26 20:35 WBC (4.3-11.1) K/mcL RBC (3.82-4.97) M/mcL Hgb (11.5-15.4) g/dL Hct (35.3-44.9) % MCV (83.0-100.0) fL MCH (28.0-33.3) pg MCHC (31.6-35.5) g/dL RDW (11.5-14.5) % Plt Count (140-400) K/mcL MPV (9.4-12.4) fL Immature Gran % (0-4) % Seg Neutrophils % % Lymphocytes % % Monocytes % % Eosinophils % % Basophils % % Neutrophils # (1.6-8.9) K/mcL Lymphocytes # (0.6-4.6) K/mcL Monocytes # (0.0-1.3) K/mcL Eosinophils # (0.0-0.6) K/mcL Basophils # (0.0-0.2) K/mcL Reactive Lymphocytes (Not Present) Platelet Estimate (Normal) PT (9.4-12.1) Seconds INR APTT (26.0-36.0) Seconds Sodium (136-145) mEq/L Potassium (3.5-4.5) mEq/L Chloride (98-109) mEq/L Carbon Dioxide (19-29) mEq/L BUN (7-20) mg/dL Creatinine (0.57-1.11) mg/dL Est GFR ( Amer) (> 60) Est GFR (Non-Af Amer) (> 60) BUN/Creatinine Ratio (6-26) Glucose (70-99) mg/dL Calculated Osmolality (280-300) Lactic Acid 2.1 (0.5-2.2) mmol/L Calcium (8.6-10.8) mg/dL Magnesium (1.6-2.6) mg/dL Total Bilirubin (0.2-1.2) mg/dL Direct Bilirubin (0.0-0.5) mg/dL Indirect Bilirubin (0.0-1.2) mg/dL AST (5-34) Units/L ALT (0-55) Units/L Alkaline Phosphatase (38-126) Units/L Troponin I 0.02 (0-0.03) ng/mL Serum Total Protein (6.0-8.3) g/dL Albumin (3.5-5.0) g/dL Globulin (2.4-3.5) g/dL Albumin/Globulin Ratio (1.1-2.2) Lipase (8-78) Units/L Urine Color Red A (Yellow) Urine Clarity Cloudy A (Clear) Urine pH 5.5 (5.0-8.0) pH Units Ur Specific [place] 1.023 (1.010-1.025) Urine Protein 30 H (Neg-Trace) mg/dL Urine Glucose (UA) Normal (Normal) mg/dL Urine Ketones Trace H (Negative) mg/dL Urine Blood Small H (Negative) Urine Nitrite Negative (Negative) Urine Bilirubin Small H (Negative) Urine Urobilinogen Normal (Normal) mg/dL Ur Leukocyte Esterase Moderate H (Negative) Urine Microscopic RBC 3-5 H (0-3) per hpf Urine Microscopic WBC TNTC H (0-3) per hpf Ur Squamous Epith Cells Moderate H (None-Few) per lpf Amorphous Sediment Few (Few) Urine Bacteria Many H (None-Few) per hpf Hyaline Casts Moderate H (None-Few) per lpf Ur Culture Indicated? YES A (NO) Stool Occult Blood (Negative) Specimen Rejected Blood Type Antibody Screen 09/26/17 09/26/17 09/26/17 Range/Units 20:46 20:56 21:28 WBC (4.3-11.1) K/mcL RBC (3.82-4.97) M/mcL Hgb (11.5-15.4) g/dL Hct (35.3-44.9) % MCV (83.0-100.0) fL MCH (28.0-33.3) pg MCHC (31.6-35.5) g/dL RDW (11.5-14.5) % Plt Count (140-400) K/mcL MPV (9.4-12.4) fL Immature Gran % (0-4) % Seg Neutrophils % % Lymphocytes % % Monocytes % % Eosinophils % % Basophils % % Neutrophils # (1.6-8.9) K/mcL Lymphocytes # (0.6-4.6) K/mcL Monocytes # (0.0-1.3) K/mcL Eosinophils # (0.0-0.6) K/mcL Basophils # (0.0-0.2) K/mcL Reactive Lymphocytes (Not Present) Platelet Estimate (Normal) PT (9.4-12.1) Seconds INR APTT (26.0-36.0) Seconds Sodium (136-145) mEq/L Potassium (3.5-4.5) mEq/L Chloride (98-109) mEq/L Carbon Dioxide (19-29) mEq/L BUN (7-20) mg/dL Creatinine (0.57-1.11) mg/dL Est GFR ( Amer) (> 60) Est GFR (Non-Af Amer) (> 60) BUN/Creatinine Ratio (6-26) Glucose (70-99) mg/dL Calculated Osmolality (280-300) Lactic Acid (0.5-2.2) mmol/L Calcium (8.6-10.8) mg/dL Magnesium (1.6-2.6) mg/dL Total Bilirubin (0.2-1.2) mg/dL Direct Bilirubin (0.0-0.5) mg/dL Indirect Bilirubin (0.0-1.2) mg/dL AST (5-34) Units/L ALT (0-55) Units/L Alkaline Phosphatase (38-126) Units/L Troponin I (0-0.03) ng/mL Serum Total Protein (6.0-8.3) g/dL Albumin (3.5-5.0) g/dL Globulin (2.4-3.5) g/dL Albumin/Globulin Ratio (1.1-2.2) Lipase (8-78) Units/L Urine Color (Yellow) Urine Clarity (Clear) Urine pH (5.0-8.0) pH Units Ur Specific [place] (1.010-1.025) Urine Protein (Neg-Trace) mg/dL Urine Glucose (UA) (Normal) mg/dL Urine Ketones (Negative) mg/dL Urine Blood (Negative) Urine Nitrite (Negative) Urine Bilirubin (Negative) Urine Urobilinogen (Normal) mg/dL Ur Leukocyte Esterase (Negative) Urine Microscopic RBC (0-3) per hpf Urine Microscopic WBC (0-3) per hpf Ur Squamous Epith Cells (None-Few) per lpf Amorphous Sediment (Few) Urine Bacteria (None-Few) per hpf Hyaline Casts (None-Few) per lpf Ur Culture Indicated? (NO) Stool Occult Blood Positive A (Negative) Specimen Rejected Labelling Blood Type O POSITIVE Antibody Screen NEGATIVE - Radiology Data Radiology results reviewed: Yes I reviewed the patient's radiology results. Abdomen/Pelvis CT 09/26/17 20:28 IMPRESSION: Descending and sigmoid colitis, infectious or inflammatory. D/ / Azul Butler Cha, MD / Azul Butler Cha, MD Interpreting Provider: Azul Butler Cha, MD Chest X-Ray 09/26/17 20:28 IMPRESSION: Right basilar airspace disease, atelectasis and/or pneumonia. D/ / Azul Butler Cha, MD / Azul Butler Cha, MD Interpreting Provider: Azul Butler Cha, MD - EKG Data EKG attestation: Yes I reviewed and interpreted this EKG. EKG results narrative: Heart rate 85 bpm. CA interval 143 ms. QTC 43 ms. Normal axis. Normal sinus rhythm. No ST elevation or ST depression noted. EKG quality due to artifact. Overall no acute changes noted from EKG on 03/05/2017. Critical Care Time Critical Care Time: Yes Total Critical Care Time: 50 Attestation: Critical care performed: Time is exclusive of separately billable procedures. Time includes: direct patient care, patient reassessment, coordination of patient care, interpretation of data (laboratory data, radiology data, and respiratory data), review of patient's medical records, medical consultation and documentation of patient care. Procedures included in critical care time: Procedures excluded from critical care time: Attestation Statement - Attestation Attestation: I, Geovani Roberts MD, personally evaluated this patient and discussed their management with the resident physician. I reviewed the resident's note and agree with the documented findings, medical decision making, and plan of care. 51-year-old female presents to the emergency department after a syncopal episode which occurred a few hours prior to arrival. The syncope occurred while she was lying in bed. reports she was out for about a minute and then woke up. Patient has had severe uncontrolled diarrhea for the past 2 days. reports it just comes out in her clothes and in the bed and they have to get her into the shower and clean her up. There was one episode of very dark diarrhea this morning but otherwise has not been black or dark. No gross hematochezia. One episode of vomiting 2 days ago but none since. Patient does complain of left lower quadrant abdominal pain which just started today. She has been very weak and just lying in bed. On arrival here at triage are pressure was 50/34. On examination patient is a well-developed well-nourished female in mild distress. She is alert and answers questions appropriately. She is extremely weak. She is pale. There is no cyanosis or diaphoresis. Because membranes are markedly dry. Neck is supple and nontender. Breath sounds are clear and equal bilaterally. Heart regular rate and rhythm. Abdomen is soft with moderate left lower quadrant tenderness on direct palpation. No tympany or distention. Bowel sounds present. Labs reviewed. Acute renal failure with creatinine of 12.99. UTI present. Chest x-ray shows right basilar airspace disease, atelectasis and/or pneumonia. CT the abdomen and pelvis shows descending and sigmoid colitis, infectious or inflammatory. Dr. Roldan discussed the case with the induction coordination power engineer glass scullion, Dr. Minor. She recommended aggressive hydration and they will see the patient in the morning. The hospitalist, Dr. Sharpe, was consulted and accepted admission of the patient.
[2017-09-26 20:50] LABS: Bilirubin,Urine Small (Negative); Blood,Urine Small (Negative); Clarity,Urine Cloudy (Clear); Color,Urine Red (Yellow); Glucose,Urine (UA) Normal (Normal); Ketones,Urine Trace mg/dL (Negative); Leukocyte Esterase,Urine Moderate (Negative); Nitrite,Urine Negative (Negative); PH,Urine 5.5 pH Units (5.0-8.0); Protein,Urine 30 mg/dL (Neg-Trace); Specific Gravity,Urine 1.023 (1.010-1.025); Urobilinogen,Urine Normal (Normal)
[2017-09-26 20:52] LABS: Hyaline Casts,Urine Moderate per lpf (None-Few); Squamous Epithelial Cell,Urine Moderate per lpf (None-Few); WBC,Urine TNTC per hpf (0-3)
[2017-09-26 20:54] LABS: Platelet Estimate Normal (Normal); Reactive Lymphocytes Present (Not Present)
[2017-09-26 21:00] LABS: Albumin 2.8 g/dL (3.5-5.0); Albumin/Globulin Ratio 0.6 (1.1-2.2); Bilirubin,Direct 0.2 mg/dL (0.0-0.5); Bilirubin,Indirect 0.3 mg/dL (0.0-1.2); Bilirubin,Total 0.5 mg/dL (0.2-1.2); Calcium 9.6 mg/dL (8.6-10.8); Globulin 4.9 g/dL (2.4-3.5); Magnesium 2.8 mg/dL (1.6-2.6); Potassium 4.6 mEq/L (3.5-4.5); Total Protein 7.7 g/dL (6.0-8.3)
[2017-09-26] MEDS ORDERED: Vancomycin 1,000 MG in D5% in Water 250 ML IVPB ONE (21:14)
[2017-09-26] MEDS ORDERED: Piperacillin/Tazobactam 3.375 GM in Water for inj. (sterile) 20 ML IVP ONE (21:14)
[2017-09-26 21:16] LABS: Amorphous Sediment,Urine Few (Few); Bacteria,Urine Many per hpf (None-Few)
[2017-09-26] MEDS ORDERED: 0.9 % Sodium Chloride 1,000 ML IVC ONE ×2 (21:28→23:30)
[2017-09-26] MEDS ORDERED: Naloxone 0.4 MG/ML INJ IVP PRN (23:46)
[2017-09-26] MEDS ORDERED: Acetaminophen 325 MG TABLET PO PRN (23:46)
--- NOTE | 2017-09-27 00:09 | Internal Med History&Physical ---
Date of Encounter: 09/27/17 Time of Encounter: 23:05 Assessment and Plan (1) Septic shock Current visit: Yes Status: Acute Secondary to colitis as well as pneumonia. Plan as documented below. (2) Colitis Current visit: Yes Status: Acute CAT scan showed descending and sigmoid colitis. IV Zosyn as started. Generous IV fluid. Repeat CBC in the morning. Stool Hemoccult is positive therefore we will follow the hemoglobin and start her on IV Protonix but blood could be just secondary to colitis itself. did complain of one episode of melena at least. I have ordered iron studies. I would also consult GI and will request morning team to call gastroenterology. (3) Pneumonia Current visit: Yes Status: Acute Chest x-ray shows pneumonia she is well covered with Zosyn follow the blood cultures please as well as CBC Qualifiers: Pneumonia type: due to unspecified organism Laterality: right Lung location: lower lobe of lung Qualified Code(s): J18.1 - Lobar pneumonia, unspecified organism (4) UTI (urinary tract infection) Current visit: Yes Status: Acute And showed leukocyte but also a lot of, squamous cell. Not sure if she really has UTI Qualifiers: Urinary tract infection type: site unspecified Hematuria presence: with hematuria Qualified Code(s): N39.0 - Urinary tract infection, site not specified; R31.9 - Hematuria, unspecified; R31.9 - Hematuria, unspecified (5) Acute kidney injury superimposed on chronic kidney disease Current visit: Yes Status: Acute Her creatinine is 12.99. By history she is stage III chronic kidney disease with baseline creatinine around 1.7. She has profuse diarrhea therefore be giving her a fluid trial to see if we have status improved. I will check her CMP phosphate and magnesium. ER has already notified Dr. Minor. (6) Abnormal liver function test Current visit: Yes Status: Acute AST ALT elevated could be due to sepsis recheck in the morning. Internal Medicine - H&P: HPI Chief complaint: Abdominal pain and diarrhea Admitted From: Home Plans for Post Hospital Care: Home History of present illness: Patient was seen on September 26. Ms. Augustine is a 51 year old female past medical history significant for stage III chronic kidney disease and hypertension. Patient presented with several-day history of lower abdominal pain and significant diarrhea. She noted some melanotic stools also. Stool Hemoccult test in the ER is positive. CT abdomen done in ER showed sigmoid and descending colon colitis. Mild nausea but no vomiting now. No bright red blood per rectum. No chest pain or dyspnea dysuria urgency frequency hematuria hematochezia. ER notes a syncopal episode but patient denies any. When she came in her blood pressure was only 50/34 but with IV hydration has come up in 90s. Past Med Surg Social Fam HX - Past Medical History Medical history: fibromyalgia, hypertension, renal disease, other Psychiatric history: depression - Past Surgical History Surgical History: (4 times), cholecystectomy - Social History Smoking Status: Never smoker Smokeless Tobacco Status: No Alcohol use: none Drug use: none - Family History Mother Hx Family Cardiac Disorders: Yes (HTN) Internal Medicine - H&P: Meds Albuterol Sulfate [Proair Hfa] 2 puff IH Q4-6H PRN 02/16/17 [History] Bupropion HCl [Wellbutrin Xl] 450 mg PO HS 02/16/17 [History] Gabapentin [Neurontin] 300 mg PO BID 02/16/17 [History] Meloxicam [Mobic] 15 mg PO HS 02/16/17 [History] OxyCODONE/APAP 10/325 [Percocet 10/325 MG] 7.5 mg PO Q6HR PRN 02/16/17 [History] Tizanidine HCl 4 - 8 mg PO TID PRN 02/16/17 [History] cloNIDine HCl [CloNIDine HCl] 0.1 mg PO HS 02/16/17 [History] Calcium Carbonate [Calcium] 1,200 mg PO HS 02/17/17 [History] Fexofenadine HCl [Allergy Relief] 180 mg PO HS 02/17/17 [History] Lisinopril [Zestril] 20 mg PO HS 02/17/17 [History] Multivitamin [One Daily Essential] 1 each PO HS 02/17/17 [History] OxyCODONE/APAP 7.5/325 [Percocet 7.5/325 MG] 1 each PO Q6HR PRN 02/17/17 [ History] Temazepam [Restoril] 30 mg PO HS 02/17/17 [History] SUMAtriptan succinate [Imitrex] 50 mg PO Q2H PRN #20 tablet 05/04/17 [Rx] Sulfamethoxazole/Trimeth DS [Bactrim DS] 1 each PO BID #14 tablet 02/18/17 [Rx] amLODIPine [Norvasc] 5 mg PO DAILY #30 tablet 02/18/17 [Rx] 3 Allergy/AdvReac Type Severity Reaction Status Date / Time ciprofloxacin [From Cipro] Allergy See Verified 02/23/17 16:38 Comments meperidine [From Demerol] Allergy Vomiting Verified 02/23/17 16:38 Tricyclic Compounds Allergy Rash Verified 02/23/17 16:38 All Systems PM: A 10-system review of systems was performed and is negative for pertinent findings except as documented above in the HPI. - Constitutional Constitutional: no chills, no fever(s), no night sweats - EENT Eyes: no change in vision, no discharge, no pain, no photophobia Ears: no ear discharge, no ear pain, no tinnitus Nose, mouth and throat: no dysphagia, no nasal discharge, no neck pain, no sore throat - Cardiovascular Cardiovascular ROS IM: no chest pain, no diaphoresis, no dyspnea, no lightheadedness, no palpitations, no syncope - Respiratory Respiratory: no cough, no dyspnea, no wheezing, no excessive phlegm production - Gastrointestinal Gastrointestinal: abdominal pain, diarrhea, melena, no hematemesis, no hematochezia, no nausea, no vomiting - Genitourinary Genitourinary: no change in urinary stream, no dysuria, no flank pain, no hematuria - Musculoskeletal Musculoskeletal ROS IM: no numbness, no tingling - Integumentary Integumentary IM: no rash, no unusual bruising - Neurological Neurological ROS: no confusion, no convulsions, no focal weakness, no numbness, no tingling, no tremor(s) - Hematologic/Lymphatic Hematologic/Lymphatic: no easy bruising - Constitutional Vitals: Temp Pulse Resp BP Pulse Ox 99.0 F 88 16 95/47 99 09/26/17 20:44 09/26/17 22:54 09/26/17 22:54 09/26/17 22:54 09/26/17 22:54 General appearance: Present: mild distress, A&O X 3, answers questions appropriately - Head Head exam: Present: atraumatic, normocephalic - Eye Eye exam: Present: PERRL, conjuntiva pink, sclera anicteric Pupils: Present: PERRL - Neck Neck exam general surgery: Present: supple, trachea midline. Absent: lymphadenopathy - Respiratory Respiratory exam: Present: CTAB. Absent: accessory muscle use, rales, rhonchi, wheezes - Cardiovascular Cardiovascular exam: Present: RRR, +S1, +S2. Absent: diastolic murmur, gallop, rubs, systolic murmur - GI/Abdominal GI/Abdominal exam: Present: diminished bowel sounds, normal bowel sounds, soft, tenderness, no peritoneal signs. Absent: distended - Extremities Exam Extremities exam: Present: warm, radial pulses palpable and symmetrical. Absent : calf tenderness, cyanotic, pedal edema - Neurological Exam Neurological exam: Present: CN II-XII intact, oriented X3, no focal deficits. Absent: pronater drift, facial droop, speech deficit - Skin Skin exam: Present: dry, intact Internal Med - H&P Results - Labs CBC & Chem 7: 09/26/17 20:26 09/26/17 20:26
[2017-09-27] MEDS: 0.9 % Sodium Chloride 1,000 ML IVC SCH ×4 (00:26→22:39)
[2017-09-27] MEDS ORDERED: Ipratropium/Albuterol Neb 3 ML IH PRN (01:24)
[2017-09-27 03:20] LABS: Basophils # 0.1 K/mcL (0.0-0.2); Basophils % 0.8 %; Eosinophils % 0.2 %; Hematocrit 33.5 % (35.3-44.9); Hemoglobin 10.7 g/dL (11.5-15.4); Immature Granulocytes % 3.8 % (0-4); Lymphocytes # 1.2 K/mcL (0.6-4.6); Lymphocytes % 18.6 %; Mean Corpuscular HGB Conc 31.9 g/dL (31.6-35.5); Mean Corpuscular Hemoglobin 29.2 pg (28.0-33.3); Mean Corpuscular Volume 91.5 fL (83.0-100.0); Mean Platelet Volume 11.7 fL (9.4-12.4); Monocytes # 0.6 K/mcL (0.0-1.3); Monocytes % 9.4 %; Neutrophils # 4.3 K/mcL (1.6-8.9); Platelet Count 120 K/mcL (140-400); Red Blood Count 3.66 M/mcL (3.82-4.97); Red Cell Distribution Width 13.9 % (11.5-14.5); Segmented Neutrophils % 67.2 %
[2017-09-27 03:32] LABS: Albumin 2.3 g/dL (3.5-5.0); Albumin/Globulin Ratio 0.5 (1.1-2.2); Bilirubin,Total 0.4 mg/dL (0.2-1.2); Globulin 4.2 g/dL (2.4-3.5); Magnesium 2.2 mg/dL (1.6-2.6); Phosphorous 4.2 mg/dL (2.3-4.7); Potassium 4.2 mEq/L (3.5-4.5); Total Protein 6.5 g/dL (6.0-8.3)
[2017-09-27 03:36] LABS: Calcium 7.9 mg/dL (8.6-10.8)
[2017-09-27 03:41] LABS: Platelet Estimate Slight Decrease (Normal)
[2017-09-27 03:43] LABS: Reactive Lymphocytes Present (Not Present)
[2017-09-27] MEDS: *HR* Morphine 2 MG/ML SYRINGE IVP PRN ×4 (04:34→22:29)
[2017-09-27] MEDS ORDERED: Piperacillin/Tazobactam 3.375 GM/200 ML BAG IVPB SCH ×2 (06:00→18:00)
--- NOTE | 2017-09-27 10:58 | Nephrology Consult Note ---
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 especially given great UOP and rapid drop in SCr already but will monitor closely Avoid nephrotoxins if possible Will check CPK and uric acid levels Will check urine sodium, creatinine and eosinophils (2) CKD (chronic kidney disease) stage 3, GFR 30-59 ml/min Current Visit: No Status: Chronic GFR at baseline around 37 (3) Metabolic acidosis Current Visit: Yes Status: Acute Likely due to JULISSA, replete with NS first and then change to bicarb gtt if no improvement History of Present Illness - Reason for Consult Consult date: 09/27/17 Acute Kidney Injury, Chronic Kidney Disease Requesting physician: Aliyah Barrett - History of Present Illness 51 y o female with PMH of HTN and stage 3 CKD admitted with diarrhea and abdominal pain and was found with SCr at 12.99, GFR 3 with BUN 123. Baseline SCr noted around 1.5. Renal consulted for management overnight but by morning SCr already improving at 9.94, GFR 4 with volume repletion. Pt seen and examined denies any NSAIDs use. Initiate BP reading in the ER noted at 50s systolic but quickly improving to 90s systolic. CT abd/pelvis showed colitis. She also reports some nausea but no vomiting Past Med Surg Social Fam HX - Past Medical History Medical history: fibromyalgia, hypertension, renal disease, other Psychiatric history: depression - Past Surgical History Surgical History: (4 times), cholecystectomy - Social History Smoking Status: Never smoker Smokeless Tobacco Status: No Alcohol use: none Drug use: none - Family History Mother Hx Family Cardiac Disorders: Yes (HTN) Medications and Allergies Albuterol Sulfate [Proair Hfa] 2 puff IH Q4-6H PRN 02/16/17 [History] Bupropion HCl [Wellbutrin Xl] 450 mg PO HS 02/16/17 [History] Gabapentin [Neurontin] 300 mg PO BID 02/16/17 [History] Meloxicam [Mobic] 15 mg PO HS 02/16/17 [History] Tizanidine HCl 4 - 8 mg PO TID PRN 02/16/17 [History] cloNIDine HCl [CloNIDine HCl] 0.1 mg PO HS 02/16/17 [History] Calcium Carbonate [Calcium] 1,200 mg PO HS 02/17/17 [History] Fexofenadine HCl [Allergy Relief] 180 mg PO HS 02/17/17 [History] Lisinopril [Zestril] 20 mg PO HS 02/17/17 [History] Multivitamin [One Daily Essential] 1 each PO HS 02/17/17 [History] OxyCODONE/APAP 7.5/325 [Percocet 7.5/325 MG] 1 each PO Q6HR PRN 02/17/17 [ History] Temazepam [Restoril] 30 mg PO HS 02/17/17 [History] SUMAtriptan succinate [Imitrex] 50 mg PO Q2H PRN #20 tablet 02/18/17 [Rx] amLODIPine [Norvasc] 5 mg PO DAILY #30 tablet 02/18/17 [Rx] 3 Allergy/AdvReac Type Severity Reaction Status Date / Time ciprofloxacin [From Cipro] Allergy See Verified 02/23/17 16:38 Comments meperidine [From Demerol] Allergy Vomiting Verified 02/23/17 16:38 Tricyclic Compounds Allergy Rash Verified 02/23/17 16:38 Review of Systems All Systems: reviewed and no additional remarkable complaints except as stated ( 10 system reviewed) Exam - Vital Signs Vital signs: Initial Vital Signs Temp Pulse Resp BP Pulse Ox 98.4 F 98 14 50/34 96 09/26/17 20:14 09/26/17 20:14 09/26/17 20:14 09/26/17 20:14 09/26/17 20:14 Vital Signs - Last 8 Hours Temp Pulse Resp BP Pulse Ox 09/27/17 09:00 103 27 123/83 96 09/27/17 07:54 110 29 118/70 96 09/27/17 07:19 100.2 F H 09/27/17 06:00 105 17 107/67 94 09/27/17 05:00 108 20 104/75 94 09/27/17 04:14 100.1 F H 09/27/17 03:59 109 19 115/63 95 09/27/17 03:32 98 18 111/71 95 Intake and Output 09/26/17 09/27/17 09/27/17 23:59 07:59 15:59 Intake Total 1250 / 3270 1000 / 1000 200 / 200 Output Total 1750 / 1750 Balance 1250 / 3270 -750 / -750 200 / 200 Intake: IV Fluids 1250 / 1250 1000 / 1000 200 / 200 0.9 % Sodium Chloride 1,000 ML 1000 / 1000 1000 / 1000 @ 150 mls/hr IVC .Q6H40M [facility] Rx #:[id number] Zosyn Premix 3.375 GM/200 ML 3. 200 / 200 375 gm In 200 ml @ 50 mls/hr IVPB Q8H [facility] Rx#:[id number] Vancocin 1,000 MG In Dextrose 5 250 / 250 % 250 ML @ 167 mls/hr IVPB ONCE ONE Rx#:[id number] Oral 0 / 0 0 / 0 Output: Catheter 1750 / 1750 Other: Blood Glucose* 127 - General Appearance General appearance: chronically ill, fatigue EENT: ATNC, mucous membranes dry Neck: no JVD, supple Respiratory: clear (ant bilat) Cardiology: no edema, normal S1, normal S2 Gastrointestinal: tenderness (diffuse), no guarding Integumentary: warm and dry Musculoskeletal: no deformities Psychiatric: mood/affect appropriate, cooperative Results - Lab Results 09/28/17 04:32 09/28/17 04:32 Most recent lab results Calcium 7.9 mg/dL (8.6-10.8) L D 09/27/17 03:09 Phosphorus 4.2 mg/dL (2.3-4.7) 09/27/17 03:09 Magnesium 2.2 mg/dL (1.6-2.6) 09/27/17 03:09 Consult Discharge Plan - Plan Referrals: NONE,PCP [Primary Care Provider] -
--- NOTE | 2017-09-27 11:29 | Gastroenterology Consult Note ---
<Junaid Ross - Last Filed: 09/27/17 11:27> Date of Encounter: 09/27/17 Time of Encounter: 10:20 - Assessment and plan (1) Colitis Current Visit: Yes Status: Acute Assessment and plan: CT A/P showed descending and sigmoid colitis infectious vs inflammatory. Continue Zosyn for now. Likely this is due to ischemic colitis as pt BP dropped to 50/34. Plan for colonoscopy in the next few days to evaluate. (2) Abnormal liver function test Current Visit: Yes Status: Acute Assessment and plan: Improving. Continue to monitor. (3) Fecal occult blood test positive Current Visit: Yes Status: Acute Assessment and plan: Pt noted black stools at home, none since admission. Plan for EGD today to r/o esophagitis, gastritis, duodenitis, PUD, MW tear, or AVM. If EGD negative, plan for colonoscopy. (4) Septic shock Current Visit: Yes Status: Acute Assessment and plan: Management per primary team. (5) CKD (chronic kidney disease) stage 3, GFR 30-59 ml/min Current Visit: No Status: Chronic - Time Spent With Patient Total time spent is greater than 50% in coordination of care (as documented) at patient's floor/unit and/or counseling patient: GI History of Present Illness - Data of Consult Patient: new to practice Consult date: 09/27/17 Requesting Physician: Aliyah Barrett MD - Consult Narrative Reason for consult: Colitis History of present illness: Ms. Augustine is a 51 year old female with PMHx of fibromyalgia, HTN, stage III CKD who presented with several-day history of lower abdominal pain, diarrhea, and some melanotic stool. Fecal occult blood test was positive. CT A/P showed descending and sigmoid colitis infectious vs inflammatory. She was started on Zosyn and IV Protonix. She denies bright red blood per rectum, but did admit black stools at home prior to admission. On presentation to the ED, her BP was 50/34 and improved with fluid. CXR revealed right basilar pneumonia. Procedures: None NSAIDs: Mobic Anticoagulation: None Past Med Surg Social Fam HX - Past Medical History Medical history: fibromyalgia, hypertension, renal disease, other Psychiatric history: depression - Past Surgical History Surgical History: (4 times), cholecystectomy - Social History Smoking Status: Never smoker Smokeless Tobacco Status: No Alcohol use: none Drug use: none - Family History Mother Hx Family Cardiac Disorders: Yes (HTN) - Gastrointestinal Gastrointestinal: Present: as per HPI - Constitutional Constitutional: as per HPI - EENT Eyes: as per HPI Ears: Present: as per HPI Nose, mouth and throat: Present: as per HPI - Cardiovascular Cardiovascular ROS: Present: as per HPI - Respiratory Respiratory IM: Present: as per HPI - Genitourinary Genitourinary: Absent: change in color, Urinary frequency - Neurological ROS Neurological GI: Present: as per HPI - Hematologic/Lymphatic Hematologic/Lymphatic pediatric: Present: as per HPI - Musculoskeletal Musculoskeletal ROS GI: Present: as per HPI - Integumentary Integumentary GI: Present: as per HPI - Psychiatric ROS Psychiatric GI: Present: as per HPI - Endocrine Endocrine IM: Present: as per HPI - Constitutional Vitals: Temp Pulse Resp BP Pulse Ox 100.2 F H 105 20 126/73 97 09/27/17 07:19 09/27/17 11:04 09/27/17 11:04 09/27/17 11:04 09/27/17 11:04 General appearance: Present: cooperative, A&O X 3, no acute distress, answers questions appropriately - Head Head exam: Present: atraumatic, normocephalic - Eye Eye exam: Present: normal appearance, sclera anicteric - ENT ENT exam: Present: mucous membranes dry - Neck Neck exam general surgery: Present: normal inspection, trachea midline - Respiratory Respiratory exam: Present: decreased breath sounds, CTAB - Cardiovascular Cardiovascular exam: Present: RRR, +S1, +S2 - GI/Abdominal GI/Abdominal exam: Present: soft, tenderness (generalized but mostly LLQ), no peritoneal signs. Absent: distended, firm, guarding - Rectal Rectal exam: Present: deferred - Extremities Exam Extremities exam: Present: warm - Neurological Exam Neurological exam: Present: no focal deficits - Psychiatric Psychiatric exam: Present: normal affect, normal mood - Skin Skin exam: Present: dry, intact, normal color, warm Results - Labs CBC & Chem 7: 09/27/17 03:09 09/27/17 03:09 Labs: Last Result Calcium 7.9 mg/dL (8.6-10.8) L D 09/27/17 03:09 Troponin I 0.02 ng/mL (0-0.03) 09/26/17 20:26 Stool Occult Blood Positive (Negative) A 09/26/17 20:46 Entire Visit Hgb 10.7 g/dL (11.5-15.4) L 09/27/17 03:09 Hct 33.5 % (35.3-44.9) L 09/27/17 03:09 PT 11.9 Seconds (9.4-12.1) 09/26/17 20:26 Total Bilirubin 0.4 mg/dL (0.2-1.2) 09/27/17 03:09 AST 130 Units/L (5-34) H 09/27/17 03:09 ALT 127 Units/L (0-55) H 09/27/17 03:09 Lipase 21 Units/L (8-78) 09/26/17 20:26 - ABG ABG results: PT/INR, D-dimer PT 11.9 Seconds (9.4-12.1) 09/26/17 20:26 Consult Discharge Plan - Plan Referrals: NONE,PCP [Primary Care Provider] - <French Pastrana - Last Filed: 09/27/17 17:23> Date of Encounter: 09/27/17 Time of Encounter: 14:00 - Time Spent With Patient Total time spent is greater than 50% in coordination of care (as documented) at patient's floor/unit and/or counseling patient: GI History of Present Illness - Data of Consult Requesting Physician: Aliyah Barrett MD - Consult Narrative History of present illness: Ms. Augustine is a 51 year old female - Constitutional Vitals: Temp Pulse Resp BP Pulse Ox 98.0 F 101 28 128/79 95 09/27/17 16:21 09/27/17 15:17 09/27/17 15:17 09/27/17 15:17 09/27/17 14:00 Results - Labs CBC & Chem 7: 09/27/17 03:09 09/27/17 03:09 Labs: Last Result Calcium 7.9 mg/dL (8.6-10.8) L D 09/27/17 03:09 Troponin I 0.02 ng/mL (0-0.03) 09/26/17 20:26 Stool Occult Blood Positive (Negative) A 09/26/17 20:46 Entire Visit Hgb 10.7 g/dL (11.5-15.4) L 09/27/17 03:09 Hct 33.5 % (35.3-44.9) L 09/27/17 03:09 PT 11.9 Seconds (9.4-12.1) 09/26/17 20:26 Total Bilirubin 0.4 mg/dL (0.2-1.2) 09/27/17 03:09 AST 130 Units/L (5-34) H 09/27/17 03:09 ALT 127 Units/L (0-55) H 09/27/17 03:09 Lipase 21 Units/L (8-78) 09/26/17 20:26 - ABG ABG results: PT/INR, D-dimer PT 11.9 Seconds (9.4-12.1) 09/26/17 20:26 - Attending Attestation I examined this patient and my medical decision-making was reviewed with the Resident Physician. I agree with the documented findings, disposition and treatment plan as described except to the extent set forth below.
[2017-09-27 11:34] LABS: Uric Acid 10.8 mg/dL (2.6-6.0)
[2017-09-27] MEDS ORDERED: *HR* Midazolam HCl 5 MG/5 ML VIAL IVP ONE ×2 (14:49→14:51)
[2017-09-27] MEDS ORDERED: *HR* FentaNYL (PF) 100 MCG/2 ML VIAL IVP ONE (14:49)
--- NOTE | 2017-09-27 14:50 | Pre-Sedation Evaluation ---
Pre-sedation evaluation - Pre-sedation checklist Date of procedure: 09/27/17 Recent Vitals: Last Vital Signs Temp 98.0 F 09/27/17 11:33 Pulse 104 09/27/17 13:00 Resp 12 09/27/17 13:00 BP 123/68 09/27/17 13:00 Pulse Ox 95 09/27/17 13:00 ASA Classification *see protocol: CLASS III-Severe systemic disease Plan of Care: Pt appropriate candidate for procedure/moderate/conscious sedation , Risks/benefits of procedure/sedation discussed w/ patient/family
[2017-09-27] MEDS ORDERED: *HR* FentaNYL (PF) 100 MCG/2 ML VIAL ONE (14:51)
--- NOTE | 2017-09-27 15:46 | Electrocardiograph Report ---
[address] [place], [place] [address] Test Date: 2017-09-26 Pat Name: Lala Augustine Department: 104 Room: [facility] Gender: F Bods Developer: : 1965 Requested By: Judson Roldan Order Number: [id number] Reading MD: Kevin Santana Measurements Intervals [place] Rate: 85 P: 32 [place]: 143 QRS: 29 QRSD: 86 T: -11 QT: 361 QTc: 403 Interpretive Statements SINUS RHYTHM NONSPECIFIC T-WAVE ABNORMALITY Electronically Signed On 09-27-2017 15:45:14 EST by Kevin Santana
[2017-09-27] MEDS: Pantoprazole 40 MG VIAL IVP SCH (18:08)
--- NOTE | 2017-09-27 18:21 | Internal Med Progress Note ---
Date of Encounter: 09/27/17 Time of Encounter: 09:00 - Assessment and plan (1) Esophagitis Current Visit: Yes Status: Acute Assessment and plan: EGD shows ulcerative or ischemic esophagitis. Place the patient on twice a day PPI and Carafate liquid form per GI consult (2) Abnormal liver function test Current Visit: Yes Status: Acute Assessment and plan: Probably due to colitis. Continue follow liver function (3) Acute kidney injury superimposed on chronic kidney disease Current Visit: Yes Status: Acute Assessment and plan: Elevated creatinine level. Improved slightly after hydration. Nephrology consult on case. We will continue hydration and follow-up renal function. (4) Colitis Current Visit: Yes Status: Acute Assessment and plan: Patient has abdominal pain with diarrhea. Abdominal CT shows colitis. On Zosyn IV. Patient has no diarrhea today. Continue IV fluid and correct electrolyte abnormality. (5) Fecal occult blood test positive Current Visit: Yes Status: Acute Assessment and plan: GI consult. Had EGD done. Will consider colonoscopy as well (6) Metabolic acidosis Current Visit: Yes Status: Acute Assessment and plan: Nephrology consult on case. Recommendation will be followed. At this point, continue IV fluid and the follow up of BMP in a.m. (7) Pneumonia Current Visit: Yes Status: Acute Assessment and plan: Continue Zosyn renal dose. Continue supportive treatment with oxygen. Qualifiers: Pneumonia type: due to unspecified organism Laterality: right Lung location: lower lobe of lung Qualified Code(s): J18.1 - Lobar pneumonia, unspecified organism (8) DVT prophylaxis Current Visit: No Status: Acute Assessment and plan: EPCD, no anticoagulation because of positive guaiac test (9) Elevated CK Current Visit: Yes Status: Acute Assessment and plan: CK level over 3000, etiology is undetermined. Patient denies muscle pain. Pt is not on statin. Will continue IV fluid and follow CK level in a.m. - Time Spent With Patient 25 - 35 minutes - Subjective Interval history: Patient was seen and examined. Still has acute respiratory distress and tachycardia. Complaint abdominal pain in epigastric area and the lower abdomen. Low BP has improved after hydration. GI consult and nephrology consult appreciated. We will continue IV fluid to correct fluid deficiency. Continue antibiotics for pneumonia and colitis. Had EGD today, shows a severe ulcerative/ischemic esophagitis. Will continue PPI and liquid Carafate per GI recommendation. - Constitutional Vitals: Temp Pulse Resp BP Pulse Ox 98.0 F 101 28 128/79 95 09/27/17 16:21 09/27/17 15:17 09/27/17 15:17 09/27/17 15:17 09/27/17 14:00 General appearance: Present: mild distress, A&O X 3, answers questions appropriately - Head Head exam: Present: atraumatic, normocephalic - Eye Eye exam: Present: PERRL, conjuntiva pink, sclera anicteric Pupils: Present: PERRL - Neck Neck exam general surgery: Present: supple, trachea midline. Absent: lymphadenopathy - Respiratory Respiratory exam: Present: CTAB. Absent: accessory muscle use, rales, rhonchi, wheezes - Cardiovascular Cardiovascular exam: Present: RRR, +S1, +S2. Absent: diastolic murmur, gallop, rubs, systolic murmur - GI/Abdominal GI/Abdominal exam: Present: normal bowel sounds, soft, tenderness (Tenderness on epigastric and LLQ, no rebound or guarding), no peritoneal signs. Absent: distended - Extremities Exam Extremities exam: Present: warm, radial pulses palpable and symmetrical. Absent : calf tenderness, cyanotic, pedal edema - Neurological Exam Neurological exam: Present: CN II-XII intact, oriented X3, no focal deficits. Absent: pronater drift, facial droop, speech deficit - Skin Skin exam: Present: dry, intact Internal Medicine: Result - Labs CBC & Chem 7: 09/27/17 03:09 09/27/17 03:09 Labs: Short CBC 09/27/17 Range/Units 03:09 WBC 6.4 (4.3-11.1) K/mcL Hgb 10.7 L (11.5-15.4) g/dL Hct 33.5 L (35.3-44.9) % Plt Count 120 L (140-400) K/mcL Neutrophils # 4.3 (1.6-8.9) K/mcL BMP 09/27/17 03:09 Sodium 140 Potassium 4.2 Chloride 112 H Carbon Dioxide 12 L BUN 115 H Creatinine 9.94 H Glucose 89 Calcium 7.9 L D Liver Function 09/27/17 Range/Units 03:09 Total Bilirubin 0.4 (0.2-1.2) mg/dL AST 130 H (5-34) Units/L ALT 127 H (0-55) Units/L Alkaline Phosphatase 125 (38-126) Units/L Albumin 2.3 L (3.5-5.0) g/dL - ABG Interpretation ABG results: PT/INR, D-dimer PT 11.9 Seconds (9.4-12.1) 09/26/17 20:26 - VTE Documentation of Mechanical Device: Intermittent pneumatic compression device Consult Discharge Plan - Plan Referrals: NONE,PCP [Primary Care Provider] -
[2017-09-28 05:11] LABS: Hematocrit 26.8 % (35.3-44.9); Mean Corpuscular HGB Conc 33.6 g/dL (31.6-35.5); Mean Corpuscular Hemoglobin 29.7 pg (28.0-33.3); Mean Corpuscular Volume 88.4 fL (83.0-100.0); Mean Platelet Volume 11.6 fL (9.4-12.4); Platelet Count 126 K/mcL (140-400); Red Blood Count 3.03 M/mcL (3.82-4.97); Red Cell Distribution Width 14.4 % (11.5-14.5)
[2017-09-28] MEDS: Pantoprazole 40 MG VIAL IVP SCH ×2 (05:19→18:05)
[2017-09-28] MEDS: *HR* Morphine 2 MG/ML SYRINGE IVP PRN ×4 (05:19→20:34)
[2017-09-28 05:36] LABS: Albumin 2.1 g/dL (3.5-5.0); Albumin/Globulin Ratio 0.6 (1.1-2.2); Bilirubin,Total 0.4 mg/dL (0.2-1.2); Calcium 8.1 mg/dL (8.6-10.8); Globulin 3.4 g/dL (2.4-3.5); Potassium 3.6 mEq/L (3.5-4.5); Total Protein 5.5 g/dL (6.0-8.3)
[2017-09-28 05:46] LABS: Lymphocytes # 1.6 K/mcL (0.6-4.6); Neutrophils # 4.1 K/mcL (1.6-8.9); Platelet Estimate Decreased (Normal)
[2017-09-28] MEDS: Piperacillin/Tazobactam 3.375 GM/200 ML BAG IVPB SCH ×2 (06:13→18:05)
[2017-09-28] MEDS: Sodium Bicarbonate 150 MEQ in D5% in Water 1,000 ML IVC SCH (14:47)
[2017-09-28] MEDS: BuPROPion XL (24 HR) 150 MG TABLET PO SCH (15:09)
--- NOTE | 2017-09-28 15:15 | Internal Med Progress Note ---
Date of Encounter: 09/28/17 Time of Encounter: 13:40 - Assessment and plan (1) Pneumonia Current Visit: Yes Status: Acute Assessment and plan: Continue Zosyn renal dose. Continue supportive treatment with oxygen. Qualifiers: Pneumonia type: due to unspecified organism Laterality: right Lung location: lower lobe of lung Qualified Code(s): J18.1 - Lobar pneumonia, unspecified organism (2) Acute kidney injury superimposed on chronic kidney disease Current Visit: Yes Status: Acute Assessment and plan: Elevated creatinine level. Improved slightly after hydration. Nephrology consult on case. We will continue hydration and follow-up renal function. (3) Metabolic acidosis Current Visit: Yes Status: Acute Assessment and plan: Nephrology consult on case. Bicarb deficit: 5amp started on bicarb infusion (3amp in D5W at 125cc/hr x 2 bags) will continue to closely monitor (4) Abnormal liver function test Current Visit: Yes Status: Acute Assessment and plan: Probably due to colitis. Continue follow liver function (5) Colitis Current Visit: Yes Status: Acute Assessment and plan: Abdominal CT shows colitis. On Zosyn IV. Patient has no diarrhea today. Continue IV fluid and correct electrolyte abnormality as needed (6) Elevated CK Current Visit: Yes Status: Acute Assessment and plan: CK level over 3000, etiology is undetermined. Patient denies muscle pain. Pt is not on statin. Will continue IV fluid and follow CK level in a.m. Improved from previous day (7) Esophagitis Current Visit: Yes Status: Acute Assessment and plan: EGD shows ulcerative or ischemic esophagitis. Continue twice a day PPI and Carafate liquid form per GI consult (8) Fecal occult blood test positive Current Visit: Yes Status: Acute Assessment and plan: GI consult. Had EGD done. Will consider colonoscopy as well No discussion of colonoscopy as of yet, H&H within acceptable range and not recurrent bleeding reported will closely monitor (9) DVT prophylaxis Current Visit: No Status: Acute Assessment and plan: EPCD, no anticoagulation because of positive guaiac test - Subjective Interval history: Patient seen and examined at bedside. Reports of feeling weak and has not been able to get much sleep. Drowsy but communicating appropriately, AAO x 3. No overnight issues reported - Constitutional Vitals: Temp Pulse Resp BP Pulse Ox 98.1 F 90 15 126/81 93 09/28/17 12:15 09/28/17 15:00 09/28/17 15:00 09/28/17 15:00 09/28/17 15:00 General appearance: Present: A&O X 3 (fatigued/drowsy), no acute distress, obese , answers questions appropriately - Head Head exam: Present: atraumatic, normocephalic - Eye Eye exam: Present: conjuntiva pink, sclera anicteric - Respiratory Respiratory exam: Present: decreased breath sounds. Absent: respiratory distress, wheezes - Cardiovascular Cardiovascular exam: Present: RRR, +S1, +S2 - GI/Abdominal GI/Abdominal exam: Present: normal bowel sounds, soft, no peritoneal signs. Absent: distended, tenderness - Extremities Exam Extremities exam: Present: warm, radial pulses palpable and symmetrical. Absent : calf tenderness - Neurological Exam Neurological exam: Present: alert, oriented X3 - Psychiatric Psychiatric exam: Present: normal affect, normal mood Internal Medicine: Result - Labs CBC & Chem 7: 09/28/17 04:32 09/28/17 04:32 Labs: Short CBC 09/28/17 Range/Units 04:32 WBC 5.8 (4.3-11.1) K/mcL Hgb 9.0 L D (11.5-15.4) g/dL Hct 26.8 L (35.3-44.9) % Plt Count 126 L (140-400) K/mcL Neutrophils # 4.1 (1.6-8.9) K/mcL BMP 09/28/17 04:32 Sodium 145 Potassium 3.6 Chloride 121 H Carbon Dioxide 16 L BUN 67 H D Creatinine 3.11 H D Glucose 118 H Calcium 8.1 L Liver Function 09/28/17 Range/Units 04:32 Total Bilirubin 0.4 (0.2-1.2) mg/dL AST 150 H (5-34) Units/L ALT 153 H (0-55) Units/L Alkaline Phosphatase 214 H (38-126) Units/L Albumin 2.1 L (3.5-5.0) g/dL - ABG Interpretation ABG results: PT/INR, D-dimer PT 11.9 Seconds (9.4-12.1) 09/26/17 20:26 - VTE Documentation of Mechanical Device: Intermittent pneumatic compression device Consult Discharge Plan - Plan Referrals: NONE,PCP [Primary Care Provider] -
--- NOTE | 2017-09-28 17:06 | Nephrology Progress Note ---
Date of Encounter: 09/28/17 Time of Encounter: 10:30 - Assessment and Plan (1) JULISSA (acute kidney injury) Current Visit: Yes Status: Acute SCr drastically improved at 3.11, GFR 16, continue volume repletion Can drink fluids instead. 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 Off bicarb gtt which is ok Subjective Interval history: Pt seen and examined feeling better but bored. No overnight issues. Now tolerating liquid diet Objective - Vital Signs Vital signs: Vital Signs Temp Pulse Resp BP Pulse Ox 09/28/17 15:00 90 15 126/81 93 09/28/17 14:00 86 24 131/78 93 09/28/17 13:00 92 23 129/77 93 09/28/17 12:15 98.1 F 09/28/17 12:00 98.1 F 96 18 142/87 99 09/28/17 11:00 100 19 136/88 94 09/28/17 10:00 96 24 149/57 93 09/28/17 09:00 103 22 134/79 93 09/28/17 08:26 98.1 F 09/28/17 08:00 98.1 F 101 24 147/85 93 09/28/17 07:00 105 19 135/85 94 09/28/17 06:00 105 17 132/77 97 09/28/17 05:00 104 22 139/83 98 09/28/17 04:00 101 12 117/66 97 09/28/17 03:36 110 09/28/17 03:00 98.6 F 108 12 118/69 92 09/28/17 02:00 112 19 129/74 91 09/28/17 01:00 108 12 140/76 94 09/28/17 00:00 108 20 134/76 97 09/27/17 23:57 97.9 F 09/27/17 23:31 110 09/27/17 23:00 111 28 136/79 93 09/27/17 22:00 112 18 136/89 95 09/27/17 21:00 110 22 145/85 98 09/27/17 20:00 107 16 143/101 97 09/27/17 19:20 98.9 F 09/27/17 19:00 106 20 137/89 97 09/27/17 18:00 100 13 118/95 97 Intake and Output 09/28/17 09/28/17 09/28/17 07:59 15:59 23:59 Intake Total 320 / 320 1120 / 1120 Output Total 400 / 400 900 / 900 Balance -80 / -80 220 / 220 Intake: IV Fluids 200 / 200 1000 / 1000 0.9 % Sodium Chloride 1,000 ML 1000 / 1000 @ 100 mls/hr IVC .Q10H [facility] Rx#: [id number] Zosyn Premix 3.375 GM/200 ML 3. 200 / 200 375 gm In 200 ml @ 50 mls/hr IVPB Q12H [facility] Rx#:[id number] Oral 120 / 120 120 / 120 Output: Catheter 400 / 400 900 / 900 Other: Weight 74.31 kg Blood Glucose* 127 Patient Weight 09/28/17 23:59 Weight 74.31 kg - General Appearance General appearance: Present: chronically ill (NAD) EENT: Present: mucous membranes moist Neck: Present: no JVD, supple Respiratory: Present: clear (ant bilat) Cardiology: Present: no edema, normal S1, normal S2 Gastrointestinal: Present: tenderness (mild, diffuse), no guarding Integumentary: Present: warm and dry Neurologic: Present: no focal deficit Musculoskeletal: Present: no deformities Psychiatric: Present: mood/affect appropriate, cooperative - Lab 09/28/17 04:32 09/28/17 04:32 Most recent lab results Calcium 8.1 mg/dL (8.6-10.8) L 09/28/17 04:32 Phosphorus 4.2 mg/dL (2.3-4.7) 09/27/17 03:09 Magnesium 2.2 mg/dL (1.6-2.6) 09/27/17 03:09 Urine Creatinine 55 mg/dL 09/27/17 16:15 Urine Sodium 96.0 mEq/L 09/27/17 16:15 - VTE Documentation of Mechanical Device: Intermittent pneumatic compression device Consult Discharge Plan - Plan Referrals: NONE,PCP [Primary Care Provider] -
[2017-09-28] MEDS: Ondansetron 4 MG/2 ML VIAL IVP PRN (20:33)
[2017-09-29] MEDS: *HR* Morphine 2 MG/ML SYRINGE IVP PRN ×6 (00:05→21:11)
[2017-09-29] MEDS: Sodium Bicarbonate 150 MEQ in D5% in Water 1,000 ML IVC SCH (00:06)
[2017-09-29] MEDS: Ondansetron 4 MG/2 ML VIAL IVP PRN (04:00)
[2017-09-29 05:06] LABS: Hematocrit 25.3 % (35.3-44.9); Hemoglobin 8.3 g/dL (11.5-15.4); Immature Platelets 5.4 % (1.1-6.1); Mean Corpuscular HGB Conc 32.8 g/dL (31.6-35.5); Mean Corpuscular Hemoglobin 28.7 pg (28.0-33.3); Mean Corpuscular Volume 87.5 fL (83.0-100.0); Mean Platelet Volume 10.9 fL (9.4-12.4); Red Blood Count 2.89 M/mcL (3.82-4.97)
[2017-09-29] MEDS: Pantoprazole 40 MG VIAL IVP SCH ×2 (05:07→17:14)
[2017-09-29] MEDS: Piperacillin/Tazobactam 3.375 GM/200 ML BAG IVPB SCH (05:08)
[2017-09-29 05:15] LABS: Platelet Count 98 K/mcL (140-400)
[2017-09-29 05:30] LABS: Albumin/Globulin Ratio 0.6 (1.1-2.2); Calcium 7.1 mg/dL (8.6-10.8); Globulin 3.1 g/dL (2.4-3.5); Magnesium 0.8 mg/dL (1.6-2.6); Potassium 2.7 mEq/L (3.5-4.5)
[2017-09-29 05:31] LABS: Albumin 1.9 g/dL (3.5-5.0); Bilirubin,Total 0.8 mg/dL (0.2-1.2); Phosphorous 1.6 mg/dL (2.3-4.7)
[2017-09-29 05:47] LABS: Lymphocytes # 1.8 K/mcL (0.6-4.6); Monocytes # 0.2 K/mcL (0.0-1.3)
[2017-09-29 05:48] LABS: Platelet Estimate Decreased (Normal)
[2017-09-29 06:43] LABS: Albumin 1.8 g/dL (3.5-5.0); Albumin/Globulin Ratio 0.6 (1.1-2.2); Bilirubin,Total 0.7 mg/dL (0.2-1.2); Calcium 6.9 mg/dL (8.6-10.8); Globulin 3.1 g/dL (2.4-3.5); Potassium 2.7 mEq/L (3.5-4.5); Total Protein 4.9 g/dL (6.0-8.3)
[2017-09-29 07:04] LABS: Magnesium 0.8 mg/dL (1.6-2.6)
[2017-09-29 07:55] LABS: Phosphorous 1.8 mg/dL (2.3-4.7)
[2017-09-29] MEDS: BuPROPion XL (24 HR) 150 MG TABLET PO SCH (08:49)
--- NOTE | 2017-09-29 09:14 | Internal Med Progress Note ---
Date of Encounter: 09/29/17 Time of Encounter: 09:11 - Assessment and plan (1) Pneumonia Current Visit: Yes Status: Acute Assessment and plan: blood cultures remain negative clinically improving will de-escalate therapy, d/c Zosyn and start Levofloxacin qdaily (renally dosed ) will complete abx therapy for a total of 7 days (Day 3/7) Qualifiers: Pneumonia type: due to unspecified organism Laterality: right Lung location: lower lobe of lung Qualified Code(s): J18.1 - Lobar pneumonia, unspecified organism (2) Acute kidney injury superimposed on chronic kidney disease Current Visit: Yes Status: Acute Assessment and plan: Clinically improving discontinued bicarb gtt Renal function appears to be at baseline nephrology on board and consultation appreciated will continue to closely monitor (3) Metabolic acidosis Current Visit: Yes Status: Resolved Assessment and plan: Resolved s/p receiving bicarb infusion (3amp in D5W at 125cc/hr x 2 bags) yesterday will continue to closely monitor (4) Abnormal liver function test Current Visit: Yes Status: Acute Assessment and plan: Even though patient is clinically improving, her LFTs continue to trend up will obtain hepatitis serologies, if negative, will consider GI follow up will continue to closely monitor (5) Colitis Current Visit: Yes Status: Acute Assessment and plan: Abdominal CT shows colitis. will continue Levaquin clinically improving will advance diet as tolerated diarrhea resolved (6) Elevated CK Current Visit: Yes Status: Acute Assessment and plan: Improved from previous day will closely monitor (7) Esophagitis Current Visit: Yes Status: Acute Assessment and plan: EGD shows ulcerative or ischemic esophagitis. Continue twice a day PPI and Carafate liquid as per GI consult Advance diet as tolerated (8) Fecal occult blood test positive Current Visit: Yes Status: Acute Assessment and plan: GI consult. Had EGD done. Will consider colonoscopy as well No discussion of colonoscopy as of yet, H&H within acceptable range and no recurrent bleeding reported will closely monitor Code(s): R19.5 - Other fecal abnormalities (9) DVT prophylaxis Current Visit: No Status: Acute Assessment and plan: EPCD (10) UTI (urinary tract infection) Current Visit: Yes Status: Acute Assessment and plan: Urine culture positive for pansensitive E.coli continue Levaquin Qualifiers: Urinary tract infection type: site unspecified Hematuria presence: with hematuria Qualified Code(s): N39.0 - Urinary tract infection, site not specified; R31.9 - Hematuria, unspecified; R31.9 - Hematuria, unspecified - Subjective Interval history: Patient seen and examined at bedside. More awake today, reports of improvement in her weakness from previous day. Reports of feeling hungry and would like to advance her diet. Pt will be transferred to today Noted to have significant electrolyte abnormalities, will continue electrolyte protocol will obtain PT/OT evaluation Renal function appears to be at baseline, nephrology on board. Respiratory status improved however noted to intermittently remain on O2 support , will titrate off O2 supplementation as patient reports of not being on home oxygen. - Constitutional Vitals: Temp Pulse Resp BP Pulse Ox 99.3 F 75 16 116/84 98 09/29/17 07:30 09/29/17 08:00 09/29/17 08:00 09/29/17 08:00 09/29/17 08:00 General appearance: Present: A&O X 3 (frail ), no acute distress, obese, answers questions appropriately - Head Head exam: Present: atraumatic, normocephalic - Eye Eye exam: Present: conjuntiva pink, sclera anicteric - Respiratory Respiratory exam: Absent: rales, respiratory distress, wheezes - Cardiovascular Cardiovascular exam: Present: RRR, +S1, +S2. Absent: diastolic murmur, systolic murmur - GI/Abdominal GI/Abdominal exam: Present: normal bowel sounds, soft, no peritoneal signs. Absent: distended, tenderness - Extremities Exam Extremities exam: Present: warm, radial pulses palpable and symmetrical. Absent : calf tenderness, pedal edema - Neurological Exam Neurological exam: Present: alert, oriented X3 - Psychiatric Psychiatric exam: Present: normal affect, normal mood Internal Medicine: Result - Labs CBC & Chem 7: 09/29/17 04:49 09/29/17 06:00 Labs: Short CBC 09/29/17 Range/Units 04:49 WBC 4.1 L (4.3-11.1) K/mcL Hgb 8.3 L (11.5-15.4) g/dL Hct 25.3 L (35.3-44.9) % Plt Count 98 L (140-400) K/mcL Neutrophils # 2.0 (1.6-8.9) K/mcL BMP 09/29/17 09/29/17 04:49 06:00 Sodium 147 H 146 H Potassium 2.7 L 2.7 L Chloride 112 H 110 H Carbon Dioxide 26 26 BUN 32 H D 31 H Creatinine 1.41 H D 1.37 H Glucose 133 H 153 H Calcium 7.1 L 6.9 L Liver Function 09/29/17 09/29/17 Range/Units 04:49 06:00 Total Bilirubin 0.8 D 0.7 (0.2-1.2) mg/dL AST 275 H 257 H (5-34) Units/L ALT 268 H 260 H (0-55) Units/L Alkaline Phosphatase 267 H 259 H (38-126) Units/L Albumin 1.9 L 1.8 L (3.5-5.0) g/dL - ABG Interpretation ABG results: PT/INR, D-dimer PT 11.9 Seconds (9.4-12.1) 09/26/17 20:26 - VTE Documentation of Mechanical Device: Intermittent pneumatic compression device Consult Discharge Plan - Plan Referrals: NONE,PCP [Primary Care Provider] -
[2017-09-29] MEDS: LEVOFLOXACIN 750 MG/150 ML IVPB SCH (11:24)
[2017-09-29 13:17] LABS: Calcium 6.9 mg/dL (8.6-10.8)
[2017-09-29 13:27] LABS: Phosphorous 1.7 mg/dL (2.3-4.7)
[2017-09-29 13:40] LABS: Immature Granulocytes % 5.8 % (0-4)
[2017-09-29 13:42] LABS: Basophils % 0.2 %; Eosinophils # 0.1 K/mcL (0.0-0.6); Eosinophils % 1.1 %; Hematocrit 25.7 % (35.3-44.9); Hemoglobin 8.4 g/dL (11.5-15.4); Immature Platelets 6.4 % (1.1-6.1); Mean Corpuscular HGB Conc 32.7 g/dL (31.6-35.5); Mean Corpuscular Hemoglobin 28.7 pg (28.0-33.3); Mean Corpuscular Volume 87.7 fL (83.0-100.0); Mean Platelet Volume 10.9 fL (9.4-12.4); Monocytes # 0.3 K/mcL (0.0-1.3); Monocytes % 7.4 %; Red Blood Count 2.93 M/mcL (3.82-4.97); Red Cell Distribution Width 13.9 % (11.5-14.5); Segmented Neutrophils % 63.5 %
[2017-09-29 13:46] LABS: Neutrophils # 2.9 K/mcL (1.6-8.9)
[2017-09-29 13:47] LABS: Platelet Count 91 K/mcL (140-400)
[2017-09-29 13:51] LABS: Hepatitis A Antibody IgM Nonreactive (Nonreactive); Hepatitis B Core IgM Nonreactive (Nonreactive); Hepatitis B Surface Antigen Nonreactive (Nonreactive); Hepatitis C Virus Antibody Nonreactive (Nonreactive)
[2017-09-29] MEDS ORDERED: Piperacillin/Tazobactam 3.375 GM/200 ML BAG IVPB SCH (14:00)
--- NOTE | 2017-09-29 17:14 | Nephrology Progress Note ---
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 Off bicarb gtt which is ok (4) Electrolyte abnormality Current Visit: Yes Status: Acute POtassium noted low at 2.7 likely due to bicarb gtt, replete aggressively after magnesium Magnesium repletion should be at a slower rate over 4-6hrs to reduce renal wasting Phos repletion with either neutraphos or kphos Subjective Interval history: Pt seen and examined while still in ICU awaiting bed transfer. Per nurse, received 6grams of magnesium, some potassium runns and was refusing neuraphos and carafate Objective - Vital Signs Vital signs: Vital Signs Temp Pulse Resp BP Pulse Ox 09/29/17 14:35 78 16 93 09/29/17 11:36 98.9 F 84 16 128/74 96 09/29/17 11:08 77 09/29/17 08:00 75 16 116/84 98 09/29/17 07:50 76 09/29/17 07:30 99.3 F 09/29/17 04:00 99.5 F 87 18 131/82 94 09/29/17 03:45 94 09/28/17 23:39 98.9 F 09/28/17 23:38 85 18 130/78 97 09/28/17 20:20 95 09/28/17 20:02 99.1 F 09/28/17 19:50 95 18 133/76 96 09/28/17 18:00 98 17 129/90 94 Intake and Output 09/29/17 09/29/17 09/29/17 07:59 15:59 23:59 Intake Total 720 / 720 Output Total 800 / 800 Balance -800 / -800 720 / 720 Intake: IV Fluids 600 / 600 Levaquin Premix 750mg/150 mL 100 / 100 750 mg In 150 ml @ 100 mls/hr IVPB Q24H [facility] Rx#:[id number] Magnesium Sulfate Premix 2gm/ 100 / 100 50mL 2 gm In 50 ml @ 44.643 mls /hr IVPB Q1H [facility] Rx#:[id number] Potassium Chloride 10 mEq/100mL 400 / 400 10 meq In 100 ml @ 100 mls/hr IVPB Q1H [facility] Rx#:[id number] Oral 120 / 120 Output: Emesis 100 / 100 Catheter 700 / 700 - Lab 09/29/17 12:49 09/29/17 12:39 Most recent lab results Calcium 6.9 mg/dL (8.6-10.8) L 09/29/17 12:39 Phosphorus 1.7 mg/dL (2.3-4.7) L 09/29/17 12:48 Magnesium 2.0 mg/dL (1.6-2.6) 09/29/17 12:48 Urine Creatinine 55 mg/dL 09/27/17 16:15 Urine Sodium 96.0 mEq/L 09/27/17 16:15 - VTE Documentation of Mechanical Device: Intermittent pneumatic compression device Consult Discharge Plan - Plan Referrals: Shabana Rodarte MD [Non-Partnered Physician] - 10/20/17 8:30 am NONE,PCP [Primary Care Provider] -
[2017-09-30] MEDS: *HR* Morphine 2 MG/ML SYRINGE IVP PRN ×3 (02:21→11:36)
[2017-09-30 05:53] LABS: Alanine Aminotransferase 305 Units/L (0-55); Albumin/Globulin Ratio 0.6 (1.1-2.2); Alkaline Phosphatase 312 Units/L (38-126); Aspartate Amino Transferase 271 Units/L (5-34); BUN/Creatinine Ratio 15 (6-26); Bilirubin,Direct 0.7 mg/dL (0.0-0.5); Bilirubin,Indirect 0.4 mg/dL (0.0-1.2); Blood Urea Nitrogen 15 mg/dL (7-20); Calcium 7.2 mg/dL (8.6-10.8); Carbon Dioxide 30 mEq/L (19-29); Chloride 105 mEq/L (98-109); Creatine Kinase 150 Units/L (29-168); Globulin 3.2 g/dL (2.4-3.5); Glucose 117 mg/dL (70-99); Magnesium 1.1 mg/dL (1.6-2.6); Osmolality,Calculated 302 (280-300); Phosphorous 2.4 mg/dL (2.3-4.7); Potassium 2.9 mEq/L (3.5-4.5); Sodium 145 mEq/L (136-145); Total Protein 5.2 g/dL (6.0-8.3); eGFR For African Americans > 60 (> 60); eGFR For Non-African Americans 59 (> 60)
[2017-09-30 05:57] LABS: Bilirubin,Total 1.1 mg/dL (0.2-1.2)
[2017-09-30 06:10] LABS: Hemoglobin 8.5 g/dL (11.5-15.4); Immature Granulocytes % 4.8 % (0-4)
[2017-09-30 06:13] LABS: Basophils % 0.5 %; Eosinophils % 0.8 %; Hematocrit 25.4 % (35.3-44.9); Immature Platelets 8.9 % (1.1-6.1); Lymphocytes % 22.4 %; Mean Corpuscular HGB Conc 33.5 g/dL (31.6-35.5); Mean Corpuscular Hemoglobin 29.5 pg (28.0-33.3); Mean Corpuscular Volume 88.2 fL (83.0-100.0); Mean Platelet Volume 12.1 fL (9.4-12.4); Monocytes # 0.3 K/mcL (0.0-1.3); Monocytes % 6.7 %; Nucleated Red Blood Cells 0.8 /100 WBC (0); Red Blood Count 2.88 M/mcL (3.82-4.97); Segmented Neutrophils % 64.8 %
[2017-09-30] MEDS: Pantoprazole 40 MG VIAL IVP SCH ×2 (06:42→18:16)
[2017-09-30 06:44] LABS: Lymphocytes # 0.9 K/mcL (0.6-4.6); Neutrophils # 2.5 K/mcL (1.6-8.9); Platelet Count 89 K/mcL (140-400)
[2017-09-30] MEDS: Ondansetron 4 MG/2 ML VIAL IVP PRN (06:48)
[2017-09-30 06:55] LABS: Platelet Estimate Decreased (Normal)
[2017-09-30] MEDS: BuPROPion XL (24 HR) 150 MG TABLET PO SCH (07:31)
[2017-09-30] MEDS: LEVOFLOXACIN 750 MG/150 ML IVPB SCH (09:23)
[2017-09-30 10:09] LABS: BUN/Creatinine Ratio 15 (6-26); Blood Urea Nitrogen 15 mg/dL (7-20); Calcium 7.2 mg/dL (8.6-10.8); Carbon Dioxide 31 mEq/L (19-29); Chloride 103 mEq/L (98-109); Glucose 147 mg/dL (70-99); Osmolality,Calculated 298 (280-300); Potassium 3.1 mEq/L (3.5-4.5); Sodium 142 mEq/L (136-145); eGFR For African Americans > 60 (> 60); eGFR For Non-African Americans 59 (> 60)
[2017-09-30] MEDS: Potassium Phosphate 44 MEQ in 0.9 % Sodium Chloride 250 ML IVPB PRN ×2 (11:23→23:18)
--- NOTE | 2017-09-30 14:03 | Internal Med Progress Note ---
Date of Encounter: 09/30/17 Time of Encounter: 13:50 - Assessment and plan (1) Pneumonia Current Visit: Yes Status: Acute Assessment and plan: blood cultures remain negative clinically improving continue Levofloxacin qdaily (renally dosed) will complete abx therapy for a total of 7 days (Day 4/7) Qualifiers: Pneumonia type: due to unspecified organism Laterality: right Lung location: lower lobe of lung Qualified Code(s): J18.1 - Lobar pneumonia, unspecified organism (2) Acute kidney injury superimposed on chronic kidney disease Current Visit: Yes Status: Resolved Assessment and plan: Clinically improving renal function back to baseline nephrology on board and consultation appreciated will continue to closely monitor (3) Metabolic acidosis Current Visit: Yes Status: Resolved (4) Abnormal liver function test Current Visit: Yes Status: Acute Assessment and plan: Even though patient is clinically improving, her LFTs continue to trend up Hepatitis serologies negative GI follow up requested f/u liver US will continue to closely monitor (5) Colitis Current Visit: Yes Status: Acute Assessment and plan: Abdominal CT shows colitis. will continue Levaquin clinically improving tolerating full liquid diet, advance diet as tolerated diarrhea resolved (6) Elevated CK Current Visit: Yes Status: Resolved Assessment and plan: Improved from previous day will closely monitor (7) Esophagitis Current Visit: Yes Status: Acute Assessment and plan: EGD shows ulcerative or ischemic esophagitis. Continue twice a day PPI and Carafate liquid as per GI consult Advance diet as tolerated Pt has been refusing carafate despite extensive education (8) Fecal occult blood test positive Current Visit: Yes Status: Acute Assessment and plan: GI consult. Had EGD done. No recurrent bleeding reported H&H within acceptable range will closely monitor Code(s): R19.5 - Other fecal abnormalities (9) DVT prophylaxis Current Visit: No Status: Acute Assessment and plan: EPCD (10) UTI (urinary tract infection) Current Visit: Yes Status: Acute Assessment and plan: Urine culture positive for pansensitive E.coli continue Levaquin Qualifiers: Urinary tract infection type: site unspecified Hematuria presence: with hematuria Qualified Code(s): N39.0 - Urinary tract infection, site not specified; R31.9 - Hematuria, unspecified; R31.9 - Hematuria, unspecified (11) Electrolyte abnormality Current Visit: Yes Status: Acute Assessment and plan: Hypokalemia, Hypomagnesemia K and Mg supplemented continue to monitor electrolytes and replace as needed - Subjective Interval history: Patient seen and examined at bedside. Resting in bed and reports of RUQ pain but states its tolerable. PT evaluation recommended inpatient rehab and patient will to go to rehab social services designee consulted for placement. Pt noted to have worsening LFTs, Hepatitis serologies negative GI follow up requested for further evaluation - Constitutional Vitals: Temp Pulse Resp BP Pulse Ox 98.3 F 85 18 131/88 97 09/30/17 11:48 09/30/17 11:48 09/30/17 11:48 09/30/17 11:48 09/30/17 11:48 General appearance: Present: A&O X 3 (frail ), no acute distress, obese, answers questions appropriately - Head Head exam: Present: atraumatic, normocephalic - Eye Eye exam: Present: conjuntiva pink, sclera anicteric - Respiratory Respiratory exam: Present: CTAB. Absent: respiratory distress, wheezes - Cardiovascular Cardiovascular exam: Present: RRR, +S1, +S2. Absent: diastolic murmur, gallop, rubs, systolic murmur - GI/Abdominal GI/Abdominal exam: Present: normal bowel sounds, soft, tenderness (RUQ tenderness to palpation), no peritoneal signs. Absent: distended - Extremities Exam Extremities exam: Present: warm, radial pulses palpable and symmetrical. Absent : calf tenderness, cyanotic, pedal edema - Neurological Exam Neurological exam: Present: alert, oriented X3 - Psychiatric Psychiatric exam: Present: normal affect, normal mood Internal Medicine: Result - Labs CBC & Chem 7: 09/30/17 04:53 09/30/17 09:44 Labs: Short CBC 09/29/17 09/30/17 Range/Units 12:49 04:53 WBC 3.8 L (4.3-11.1) K/mcL Hgb 8.5 L (11.5-15.4) g/dL Hct 25.4 L (35.3-44.9) % Plt Count 89 L (140-400) K/mcL Neutrophils # 2.9 2.5 (1.6-8.9) K/mcL BMP 09/30/17 09/30/17 04:53 09:44 Sodium 145 142 Potassium 2.9 L 3.1 L Chloride 105 103 Carbon Dioxide 30 H 31 H BUN 15 15 Creatinine 0.99 0.98 Glucose 117 H 147 H Calcium 7.2 L 7.2 L Liver Function 09/30/17 Range/Units 04:53 Total Bilirubin 1.1 D (0.2-1.2) mg/dL Direct Bilirubin 0.7 H (0.0-0.5) mg/dL AST 271 H (5-34) Units/L ALT 305 H (0-55) Units/L Alkaline Phosphatase 312 H (38-126) Units/L Albumin 2.0 L (3.5-5.0) g/dL - ABG Interpretation ABG results: PT/INR, D-dimer PT 11.9 Seconds (9.4-12.1) 09/26/17 20:26 - VTE Documentation of Mechanical Device: Intermittent pneumatic compression device Consult Discharge Plan - Plan Referrals: Shabana Rodarte MD [Non-Partnered Physician] - 10/20/17 8:30 am NONE,PCP [Primary Care Provider] -
[2017-09-30 21:31] LABS: BUN/Creatinine Ratio 13 (6-26); Blood Urea Nitrogen 13 mg/dL (7-20); Calcium 8.1 mg/dL (8.6-10.8); Carbon Dioxide 31 mEq/L (19-29); Chloride 104 mEq/L (98-109); Glucose 125 mg/dL (70-99); Osmolality,Calculated 300 (280-300); Potassium 3.4 mEq/L (3.5-4.5); Sodium 144 mEq/L (136-145); eGFR For African Americans > 60 (> 60); eGFR For Non-African Americans 55 (> 60)
[2017-09-30 22:07] LABS: Magnesium 1.3 mg/dL (1.6-2.6); Phosphorous 2.6 mg/dL (2.3-4.7)
[2017-10-01 04:07] LABS: Basophils % 0.3 %
[2017-10-01 04:09] LABS: Eosinophils % 1.2 %; Hematocrit 26.2 % (35.3-44.9); Hemoglobin 8.4 g/dL (11.5-15.4); Immature Granulocytes % 5.2 % (0-4); Immature Platelets 11.5 % (1.1-6.1); Lymphocytes # 0.8 K/mcL (0.6-4.6); Lymphocytes % 23.7 %; Mean Corpuscular HGB Conc 32.1 g/dL (31.6-35.5); Mean Corpuscular Hemoglobin 28.8 pg (28.0-33.3); Mean Corpuscular Volume 89.7 fL (83.0-100.0); Mean Platelet Volume 11.2 fL (9.4-12.4); Monocytes # 0.2 K/mcL (0.0-1.3); Monocytes % 5.8 %; Neutrophils # 2.1 K/mcL (1.6-8.9); Nucleated Red Blood Cells 0.6 /100 WBC (0); Red Blood Count 2.92 M/mcL (3.82-4.97); Red Cell Distribution Width 13.8 % (11.5-14.5); Segmented Neutrophils % 63.8 %
[2017-10-01 04:17] LABS: Platelet Count 90 K/mcL (140-400)
[2017-10-01 04:33] LABS: Alanine Aminotransferase 335 Units/L (0-55); Albumin 2.1 g/dL (3.5-5.0); Albumin/Globulin Ratio 0.6 (1.1-2.2); Alkaline Phosphatase 396 Units/L (38-126); Aspartate Amino Transferase 242 Units/L (5-34); BUN/Creatinine Ratio 13 (6-26); Bilirubin,Direct 0.7 mg/dL (0.0-0.5); Bilirubin,Indirect 0.4 mg/dL (0.0-1.2); Bilirubin,Total 1.1 mg/dL (0.2-1.2); Blood Urea Nitrogen 12 mg/dL (7-20); Calcium 7.4 mg/dL (8.6-10.8); Carbon Dioxide 30 mEq/L (19-29); Chloride 104 mEq/L (98-109); Globulin 3.3 g/dL (2.4-3.5); Glucose 113 mg/dL (70-99); Magnesium 1.5 mg/dL (1.6-2.6); Osmolality,Calculated 299 (280-300); Potassium 3.4 mEq/L (3.5-4.5); Sodium 144 mEq/L (136-145); Total Protein 5.4 g/dL (6.0-8.3); eGFR For African Americans > 60 (> 60); eGFR For Non-African Americans > 60 (> 60)
[2017-10-01 05:17] LABS: Platelet Estimate Decreased (Normal)
[2017-10-01] MEDS: *HR* Morphine 2 MG/ML SYRINGE IVP PRN (06:25)
[2017-10-01] MEDS: Pantoprazole 40 MG VIAL IVP SCH (06:25)
[2017-10-01 07:30] VITALS: BP 127/76
[2017-10-01] MEDS: BuPROPion XL (24 HR) 150 MG TABLET PO SCH (08:06)
[2017-10-01] MEDS: LEVOFLOXACIN 750 MG/150 ML IVPB SCH (08:06)
[2017-10-01] MEDS ORDERED: Potassium Chloride Elixir 20 MEQ/15 ML UDC PO ONE (08:28)
--- NOTE | 2017-10-01 09:31 | Discharge Summary ---
<Ravinder Kaiser - Last Filed: 10/01/17 09:29> Date of Encounter: 10/01/17 Time of Encounter: 09:29 - Discharge Diagnosis (1) Pneumonia Priority: Primary Status: Acute Qualifiers: Pneumonia type: due to unspecified organism Laterality: right Lung location: lower lobe of lung Qualified Code(s): J18.1 - Lobar pneumonia, unspecified organism (2) Acute kidney injury superimposed on chronic kidney disease Priority: Secondary Status: Resolved (3) Metabolic acidosis Priority: Secondary Status: Resolved (4) Abnormal liver function test Priority: Secondary Status: Acute (5) Colitis Priority: Secondary Status: Acute (6) Elevated CK Priority: Secondary Status: Resolved (7) Esophagitis Priority: Secondary Status: Acute (8) Fecal occult blood test positive Priority: Secondary Status: Acute (9) UTI (urinary tract infection) Priority: Secondary Status: Acute Qualifiers: Urinary tract infection type: site unspecified Hematuria presence: with hematuria Qualified Code(s): N39.0 - Urinary tract infection, site not specified; R31.9 - Hematuria, unspecified; R31.9 - Hematuria, unspecified (10) DVT prophylaxis Priority: Secondary Status: Acute - Discharge Medications Prescriptions: levoFLOXacin [Levaquin] 750 mg PO DAILY #2 tablet Pantoprazole Sodium [Protonix] 40 mg PO BID #60 tablet. Sucralfate [Carafate] 1 gm PO QIDAC #120 tablet Home Medications: Albuterol Sulfate [Proair Hfa] 2 puff IH Q4-6H PRN 02/16/17 [History] Bupropion HCl [Wellbutrin Xl] 450 mg PO HS 02/16/17 [History] Gabapentin [Neurontin] 300 mg PO BID 02/16/17 [History] Tizanidine HCl 4 - 8 mg PO TID PRN 02/16/17 [History] cloNIDine HCl [CloNIDine HCl] 0.1 mg PO HS 02/16/17 [History] Calcium Carbonate [Calcium] 1,200 mg PO HS 02/17/17 [History] Fexofenadine HCl [Allergy Relief] 180 mg PO HS 02/17/17 [History] Lisinopril [Zestril] 20 mg PO HS 02/17/17 [History] Multivitamin [One Daily Essential] 1 each PO HS 02/17/17 [History] OxyCODONE/APAP 7.5/325 [Percocet 7.5/325 MG] 1 each PO Q6HR PRN 02/17/17 [ History] Temazepam [Restoril] 30 mg PO HS 02/17/17 [History] SUMAtriptan succinate [Imitrex] 50 mg PO Q2H PRN #20 tablet 02/18/17 [Rx] amLODIPine [Norvasc] 5 mg PO DAILY #30 tablet 02/18/17 [Rx] Pantoprazole Sodium [Protonix] 40 mg PO BID #60 tablet. 10/01/17 [Rx] Sucralfate [Carafate] 1 gm PO QIDAC #120 tablet 10/01/17 [Rx] levoFLOXacin [Levaquin] 750 mg PO DAILY #2 tablet 10/01/17 [Rx] Allergies/Adverse Reactions: 3 Allergy/AdvReac Type Severity Reaction Status Date / Time ciprofloxacin [From Cipro] Allergy See Verified 02/23/17 16:38 Comments meperidine [From Demerol] Allergy Vomiting Verified 02/23/17 16:38 Tricyclic Compounds Allergy Rash Verified 02/23/17 16:38 Procedures/tests Complete & Pending: Procedures Performed prior 72 hours Category Date Time Status US liver [US] Routine Exams 09/30/17 16:30 Completed Date of admission: 09/26/17 22:36 Primary care physician: PCP NONE Consults: 09/26/17 23:53 Consult to Gastroenterology [CONS] Routine Consulting Provider: Gastroenterology Christina Reason for Consult: colitis Time Notified: 23:53 Call Completed: No 09/27/17 09:56 Consult to Nephrology [CONS] Routine Consulting Provider: Kidney Christina/RENAE/GLORIA/MILLIE Reason for Consult: elevated creatinine Call Completed: Yes 09/29/17 09:13 Consult to Occupational Therapy [CONS] Routine Comment: Evaluate, develop and implement POC Reason for Consult: evaluation for placement Consult to Physical Therapy [CONS] Routine Comment: Evaluate, develop and implement POC Reason for Consult: evaluation for placement 09/30/17 13:59 Consult to [facility] [CONS] Routine Reason for SW Consult: inpatient rehab placement Discharging clinician: Ravinder Kaiser Anticipated date of discharge: 10/01/17 - Patient Status Disposition: Home, Self-Care Condition: Critical Functional capacity at discharge: independent ambulation Overall status at discharge: patient is not back to baseline - Ambulatory Orders Ambulatory Orders: Consult to Physical Therapy [CONS] Time Frame: 3 Days, Facility: [facility], Location: [facility] Hepatic Panel [CHEM] Time Frame: 3 Days, Facility: [facility] , Location: Lab - Discharge Instructions Instructions: Acute Kidney Injury (DC), Urinary Tract Infection in Women (DC), Pneumonia (DC) Follow Up With: Shabana Rodarte MD [Non-Partnered Physician] - 10/20/17 8:30 am NONE,PCP [Primary Care Provider] - French Pastrana MD [Partnered Physician] - Additional Instructions: Follow up with your primary care provider within one week of discharge. please take your carafate and protonix as prescribed please stop taking meloxicam follow up with Dr. Pastrana- plan for repeat Endoscopy in 2 months please finish course of levaquin return to emergency department immediately if symptoms recur - Diet and Activity Activity: increase activity as tolerated Diet: low salt diet, other (avoid spicy foods, and foods that will give you acid reflux) Hospital course: Ms. Augustine is a 51 year old female with PMHx of fibromyalgia, HTN, CKD III, HTN. patient arrived to [facility] on 09/27/17 with several day history of lower abdominal pain and significant diarrhea. she also noted melatonic stools as well. stool hemoccult test as positive and Creatinine on admission was 12.99 and CPK was 3737. patient was admitted for further workup. patient was aggressively hydrated with IV fluids. consult to nephrology was made , and they stated that there was no indication for dialysis given good urine output and rapid drop in serum creatinine. CT of abdomen/pelvis showed descending sigmoid colitis. CXR showed right bibasilar airspace disease, concern for pneumonia. patient was placed on antibiotics. Consult to GI was made. patient underwent EGD on 09/27/17 that showed severe ulcerative/ischemic esophagitis, medium sized hiatal hernia, normal duodenum. Patient as placed on PPI BID with carafate. Recommendation from GI was to repeat endoscopy in two months, and continue PPI and carafate in the meantime. patient had elevated LFTs during her hospitalization. Liver ultrasound showed mild ascites in right upper quadrant. Hepatitis B/C serologies were negative. patient continued to have elevated LFTs during her hospitalization, but she showed significant clinical improvement. she will follow up outpatient with her PCP regarding elevated LFTs, and also will have her LFTs re checked in 3 days before following up with PCP. patient had no acute events and was stable throughout the course of her hospitalization. she was evaluated by PT/OT and they recommended inpatient rehab, but patient refused. she did not qualify for home health because she drives. patient will be set up with outpatient physical therapy. she was discharged from the hospital in stable condition. upon discharge, patient was told to stop taking meloxicam due to her CKD and risk for progression. she was told to follow up with her PCP regarding other medication options for fibromyalgia. plan Follow up with your primary care provider within one week of discharge. please take your carafate and protonix as prescribed please stop taking meloxicam follow up with Dr. Pastrana- plan for repeat Endoscopy in 2 months please finish course of levaquin for pneumonia return to emergency department immediately if symptoms recur - Time Spent with Patient Total time spent providing and/or coordinating discharge services: Greater than 30 minutes - Constitutional Vitals: Temp Pulse Resp BP Pulse Ox 98.4 F 73 16 127/76 100 10/01/17 07:26 10/01/17 08:15 10/01/17 07:26 10/01/17 07:26 10/01/17 07:26 General appearance: Present: A&O X 3 (frail ), no acute distress, obese, answers questions appropriately - Head Head exam: Present: atraumatic, normocephalic - Neck Neck exam general surgery: Present: supple, trachea midline - Respiratory Respiratory exam: Present: decreased breath sounds Additional comments: mild bilateral lower lobe rales - Cardiovascular Cardiovascular exam: Present: RRR, +S1, +S2 - GI/Abdominal GI/Abdominal exam: Present: normal bowel sounds, soft. Absent: distended, tenderness - Extremities Exam Extremities exam: Absent: cyanotic, pedal edema - Neurological Exam Neurological exam: Present: alert, oriented X3, no focal deficits - Psychiatric Psychiatric exam: Present: normal affect, normal mood - Skin Skin exam: Present: intact - VTE Documentation of Mechanical Device: Intermittent pneumatic compression device <Bonifacio Mayberry - Last Filed: 10/01/17 12:00> Date of Encounter: 10/01/17 - Discharge Diagnosis (1) Acute renal failure Priority: Primary Status: Suspected Qualifiers: Acute renal failure type: with acute tubular necrosis Qualified Code(s): N17.0 - Acute kidney failure with tubular necrosis (2) Pneumonia Status: Acute Qualifiers: Pneumonia type: due to unspecified organism Laterality: right Lung location: lower lobe of lung Qualified Code(s): J18.1 - Lobar pneumonia, unspecified organism (3) Hypovolemia due to dehydration Priority: Secondary Status: Resolved (4) Septic shock Priority: Primary Status: Resolved (5) Colitis Status: Resolved (6) Elevated transaminase level Priority: Secondary Status: Acute (7) Ulcerative esophagitis Priority: Secondary Status: Acute Comments: related to ischemia. (8) Elevated CK Status: Resolved (9) CKD (chronic kidney disease) stage 3, GFR 30-59 ml/min Priority: Secondary Status: Chronic (10) Fibromyalgia Priority: Secondary Status: Chronic (11) Metabolic acidosis Status: Resolved (12) Hypokalemia Priority: Secondary Status: Resolved Procedures/tests Complete & Pending: Procedures Performed prior 72 hours Category Date Time Status US liver [US] Routine Exams 09/30/17 16:30 Completed - Notes to Outpatient Provider Admitted with colitis and profound diarrhea causing volume depletion and acute renal failure. No dialysis. Has ischemic esophagitis and sigmoid colitis. Renal function improved but LFTs mildy elevated. Most likely related to "wash out" from hypotension. We gave a slip to have recheck on Wednesday. Date of admission: 09/26/17 22:36 Primary care physician: PCP NONE Consults: 09/26/17 23:53 Consult to Gastroenterology [CONS] Routine Consulting Provider: Gastroenterology Christina Reason for Consult: colitis Time Notified: 23:53 Call Completed: No 09/27/17 09:56 Consult to Nephrology [CONS] Routine Consulting Provider: Kidney Christina/RENAE/GLORIA/MILLIE Reason for Consult: elevated creatinine Call Completed: Yes 09/29/17 09:13 Consult to Occupational Therapy [CONS] Routine Comment: Evaluate, develop and implement POC Reason for Consult: evaluation for placement Consult to Physical Therapy [CONS] Routine Comment: Evaluate, develop and implement POC Reason for Consult: evaluation for placement 09/30/17 13:59 Consult to [facility] [CONS] Routine Reason for SW Consult: inpatient rehab placement Hospital course: Ms. Augustine is a 51 year old female - Time Spent with Patient Total time spent providing and/or coordinating discharge services: 39min - Constitutional Vitals: Temp Pulse Resp BP Pulse Ox 98.4 F 73 16 127/76 100 10/01/17 07:26 10/01/17 08:15 10/01/17 07:26 10/01/17 07:26 10/01/17 07:26 - Attending Attestation I examined this patient and my medical decision-making was reviewed with the Resident Physician on 10/01/17. I agree with the documented findings, disposition and treatment plan as described except to the extent set forth below. Ms Augustine has been admitted for acute renal failure related to volume depletion from acute colitis. She had elevated CPK and presumed pneumonia. She had quick resolution of her renal failure but had elevation of her LFTs. She was asymptomatic at this time. She is afebrile with stable vitals. She is refusing inpatient rehab at this time. She will need follow up of her liver function - most likely it is elevated due to profound hypotension Exam Alert. Comfortable Mucus membranes dry Heart reg No wheeze Abd soft Plan D/C home today Follow up with PCP (at [facility]) Labs for liver function on Wednesday No Meloxicam Further plan as above.
[2017-10-01 09:57] LABS: BUN/Creatinine Ratio 12 (6-26); Blood Urea Nitrogen 12 mg/dL (7-20); Calcium 7.6 mg/dL (8.6-10.8); Carbon Dioxide 31 mEq/L (19-29); Chloride 105 mEq/L (98-109); Glucose 147 mg/dL (70-99); Magnesium 1.2 mg/dL (1.6-2.6); Osmolality,Calculated 300 (280-300); Phosphorous 3.3 mg/dL (2.3-4.7); Potassium 3.4 mEq/L (3.5-4.5); Sodium 144 mEq/L (136-145); eGFR For African Americans > 60 (> 60); eGFR For Non-African Americans 57 (> 60)
== END 2017-10-01 13:25 | disposition home or self-care (01) | DRG 871 ==
LOC: EMEROO 20:12 → SUATTDRO 22:36 → ICNU 22:36 → 2NNU 09-29 11:04
PROVIDERS: ADMIT Internal Medicine; ATTEND Internal Medicine
PROC: ENDOEBX (2017-09-27 14:00)

== ENCOUNTER 2019-09-28 11:57 | Inpatient (IN) ==
[2019-09-28] MEDS ORDERED: 0.9 % Sodium Chloride 500 ML IVC ONE (12:01)
[2019-09-28] MEDS ORDERED: 0.9 % Sodium Chloride 1,000 ML ONE (12:03)
[2019-09-28] MEDS: 0.9 % Sodium Chloride 1,000 ML IVC ONE ×2 (12:09→16:00)
[2019-09-28 12:46] LABS: Basophils % 0.3 %; Eosinophils # 0.1 K/mcL (0.0-0.6); Eosinophils % 1.4 %; Hematocrit 34.3 % (35.3-44.9); Hemoglobin 10.8 g/dL (11.5-15.4); Immature Granulocytes % 0.6 % (0-4); Lymphocytes # 2.3 K/mcL (0.6-4.6); Lymphocytes % 36.1 %; Mean Corpuscular HGB Conc 31.5 g/dL (31.6-35.5); Mean Corpuscular Volume 98.6 fL (83.0-100.0); Mean Platelet Volume 10.3 fL (9.4-12.4); Monocytes # 0.4 K/mcL (0.0-1.3); Monocytes % 6.5 %; Neutrophils # 3.5 K/mcL (1.6-8.9); Platelet Count 175 K/mcL (140-400); Red Blood Count 3.48 M/mcL (3.82-4.97); Red Cell Distribution Width 13.2 % (11.5-14.5); Segmented Neutrophils % 55.1 %; White Blood Count 6.4 K/mcL (4.3-11.1)
[2019-09-28 13:00] LABS: Alanine Aminotransferase 20 Units/L (7-52); Albumin 3.7 g/dL (3.5-5.7); Albumin/Globulin Ratio 1.3 (1.1-2.2); Alkaline Phosphatase 130 Units/L (34-104); Aspartate Amino Transferase 21 Units/L (13-39); BUN/Creatinine Ratio 12 (6-26); Bilirubin,Total 0.4 mg/dL (0.3-1.0); Blood Urea Nitrogen 19 mg/dL (6-20); Calcium 9.3 mg/dL (8.6-10.3); Carbon Dioxide 25 mEq/L (23-29); Chloride 103 mEq/L (98-107); Globulin 2.8 g/dL (2.4-3.5); Glucose 179 mg/dL (70-105); Osmolality,Calculated 289 (280-300); Potassium 3.7 mEq/L (3.5-5.1); Sodium 136 mEq/L (136-145); Total Protein 6.5 g/dL (6.4-8.9); Troponin I < 0.03 ng/mL (< 0.04); eGFR For African Americans 40 (> 60); eGFR For Non-African Americans 33 (> 60)
[2019-09-28] MEDS ORDERED: *HR* Norepinephrine 4 MG/4 ML VIAL IVC ONE (13:41)
[2019-09-28] MEDS ORDERED: 0.9 % Sodium Chloride 250 ML ONE (13:41)
[2019-09-28] MEDS: Norepinephrine 4 MG in 0.9 % Sodium Chloride 250 ML IVC SCH (13:56)
[2019-09-28] MEDS ORDERED: Calcium Gluconate 1gm/50mL 1 GM/50 ML BAG IVPB ONE ×2 (16:02→16:17)
[2019-09-28] MEDS ORDERED: Naloxone 0.4 MG/ML INJ IVP PRN (16:18)
[2019-09-28] MEDS ORDERED: Acetaminophen 325 MG TABLET PO PRN (16:18)
[2019-09-28] MEDS ORDERED: Fluticasone Propionate Nasal 50 MCG/SPRAY BOTTLE NS PRN (16:26)
[2019-09-28 17:19] LABS: Bilirubin,Urine Negative (Negative); Blood,Urine Small (Negative); Clarity,Urine Clear (Clear); Color,Urine Yellow (Yellow); Glucose,Urine (UA) Normal (Normal); Ketones,Urine Negative (Negative); Leukocyte Esterase,Urine Small (Negative); Nitrite,Urine Negative (Negative); PH,Urine 6.5 pH Units (5.0-8.0); Protein,Urine Negative (Neg-Trace); Specific Gravity,Urine 1.008 (1.010-1.025); Urobilinogen,Urine Normal (Normal)
[2019-09-28 17:20] LABS: Amphetamine Screen,Urine Negative ng/mL (Cutoff=1000); Barbiturate Screen,Urine Negative ng/mL (Cutoff=200); Benzodiazepines Screen,Urine Negative ng/mL (Cutoff=200); Cannabinoid Screen,Urine Negative ng/mL (Cutoff = 50); Cocaine Screen,Urine Negative ng/mL (Cutoff= 300); Opiate Screen,Urine Negative ng/mL (Cutoff=300); Phencyclidine Screen,Urine Negative ng/mL (Cutoff=25)
[2019-09-28 17:23] LABS: Bacteria,Urine None Seen per hpf (None-Few); Hyaline Casts,Urine None Seen per lpf (None-Few); RBC,Urine 0-3 per hpf (0-3); Squamous Epithelial Cell,Urine Many per lpf (None-Few)
[2019-09-28] MEDS ORDERED: *HR* FentaNYL (PF) 100 MCG/2 ML VIAL IVP ONE (17:33)
[2019-09-28 17:34] LABS: Renal Epithelial Cells,Urine Few per hpf (None-Few)
[2019-09-28] MEDS ORDERED: Lidocaine 1% 20 ML MDV ONE (18:40)
[2019-09-28] MEDS: 0.9 % Sodium Chloride 1,000 ML IVC SCH (19:47)
[2019-09-28 21:33] LABS: Triiodothyronine (T3) Free 3.9 pg/mL (2.50-3.90)
[2019-09-28] MEDS ORDERED: SUMAtriptan succinate 50 MG TABLET PO ONE (23:00)
[2019-09-28] MEDS: *HR* Heparin 5,000 UNIT/ML VIAL SQ SCH (23:49)
[2019-09-29] MEDS ORDERED: Acetaminophen/Butalbital/CaffeineTABLET PO ONE (00:40)
[2019-09-29] MEDS ORDERED: *HR* OxyCODONE/APAP 7.5/325 TABLET PO ONE (01:37)
[2019-09-29] MEDS: 0.9 % Sodium Chloride 1,000 ML IVC SCH ×3 (03:37→20:05)
[2019-09-29 04:34] LABS: Basophils % 0.4 %; Eosinophils # 0.1 K/mcL (0.0-0.6); Eosinophils % 1.3 %; Hematocrit 33.2 % (35.3-44.9); Hemoglobin 11.1 g/dL (11.5-15.4); Immature Granulocytes % 0.5 % (0-4); Lymphocytes # 2.3 K/mcL (0.6-4.6); Lymphocytes % 30.8 %; Mean Corpuscular HGB Conc 33.4 g/dL (31.6-35.5); Mean Corpuscular Hemoglobin 31.2 pg (28.0-33.3); Mean Corpuscular Volume 93.3 fL (83.0-100.0); Mean Platelet Volume 10.5 fL (9.4-12.4); Monocytes # 0.6 K/mcL (0.0-1.3); Monocytes % 7.5 %; Neutrophils # 4.5 K/mcL (1.6-8.9); Platelet Count 191 K/mcL (140-400); Red Blood Count 3.56 M/mcL (3.82-4.97); Red Cell Distribution Width 12.9 % (11.5-14.5); Segmented Neutrophils % 59.5 %; White Blood Count 7.6 K/mcL (4.3-11.1)
[2019-09-29 05:00] LABS: Albumin 3.8 g/dL (3.5-5.7); Albumin/Globulin Ratio 1.5 (1.1-2.2); Bilirubin,Direct 0.1 mg/dL (0.0-0.2); Bilirubin,Indirect 0.6 mg/dL (0.0-1.0); Bilirubin,Total 0.7 mg/dL (0.3-1.0); Calcium 9.1 mg/dL (8.6-10.3); Globulin 2.6 g/dL (2.4-3.5); Magnesium 1.7 mg/dL (1.6-2.6); Potassium 3.7 mEq/L (3.5-5.1); Total Protein 6.4 g/dL (6.4-8.9)
[2019-09-29] MEDS: *HR* Heparin 5,000 UNIT/ML VIAL SQ SCH ×3 (07:44→23:27)
[2019-09-29] MEDS: Norepinephrine 4 MG in 0.9 % Sodium Chloride 250 ML IVC SCH (07:45)
[2019-09-29] MEDS ORDERED: *HR* OxyCODONE/APAP 7.5/325 TABLET PO PRN (11:29)
[2019-09-29] MEDS ORDERED: *HR* Promethazine 25 MG/ML VIAL IVP PRN (13:01)
[2019-09-29] MEDS ORDERED: Fluticasone Propionate Nasal 50 MCG/SPRAY BOTTLE NS PRN (14:34)
[2019-09-29] MEDS ORDERED: Acetaminophen 325 MG TABLET PO PRN (14:34)
[2019-09-29] MEDS: *HR* OxyCODONE/APAP 7.5/325 TABLET PO PRN (18:52)
[2019-09-30] MEDS: *HR* OxyCODONE/APAP 7.5/325 TABLET PO PRN ×4 (01:26→19:47)
[2019-09-30] MEDS ORDERED: SUMAtriptan succinate 25 MG TABLET PO ONE (01:51)
[2019-09-30] MEDS ORDERED: *HR* Promethazine 25 MG/ML VIAL IVP ONE (01:51)
[2019-09-30 04:00] LABS: Alanine Aminotransferase 16 Units/L (7-52); Albumin 3.6 g/dL (3.5-5.7); Albumin/Globulin Ratio 1.6 (1.1-2.2); Alkaline Phosphatase 135 Units/L (34-104); Aspartate Amino Transferase 17 Units/L (13-39); BUN/Creatinine Ratio 12 (6-26); Bilirubin,Total 0.3 mg/dL (0.3-1.0); Blood Urea Nitrogen 14 mg/dL (6-20); Calcium 8.3 mg/dL (8.6-10.3); Carbon Dioxide 24 mEq/L (23-29); Chloride 110 mEq/L (98-107); Globulin 2.3 g/dL (2.4-3.5); Glucose 126 mg/dL (70-105); Magnesium 1.6 mg/dL (1.6-2.6); Osmolality,Calculated 294 (280-300); Potassium 3.4 mEq/L (3.5-5.1); Sodium 141 mEq/L (136-145); Total Protein 5.9 g/dL (6.4-8.9); eGFR For African Americans > 60 (> 60); eGFR For Non-African Americans 50 (> 60)
[2019-09-30 05:50] LABS: Basophils % 0.7 %; Eosinophils # 0.1 K/mcL (0.0-0.6); Eosinophils % 3.2 %; Hematocrit 30.4 % (35.3-44.9); Hemoglobin 10.2 g/dL (11.5-15.4); Immature Granulocytes % 0.7 % (0-4); Lymphocytes % 45.4 %; Mean Corpuscular HGB Conc 33.6 g/dL (31.6-35.5); Mean Corpuscular Hemoglobin 31.3 pg (28.0-33.3); Mean Corpuscular Volume 93.3 fL (83.0-100.0); Mean Platelet Volume 10.7 fL (9.4-12.4); Monocytes # 0.3 K/mcL (0.0-1.3); Monocytes % 7.8 %; Neutrophils # 1.9 K/mcL (1.6-8.9); Platelet Count 140 K/mcL (140-400); Red Blood Count 3.26 M/mcL (3.82-4.97); Red Cell Distribution Width 13.2 % (11.5-14.5); Segmented Neutrophils % 42.2 %; White Blood Count 4.4 K/mcL (4.3-11.1)
[2019-09-30] MEDS: 0.9 % Sodium Chloride 1,000 ML IVC SCH (07:41)
[2019-09-30] MEDS ORDERED: 0.9 % Sodium Chloride 1,000 ML IVC SCH ×2 (08:30→17:43)
[2019-09-30] MEDS: *HR* Heparin 5,000 UNIT/ML VIAL SQ SCH (08:48)
[2019-09-30] MEDS: Ibuprofen 400 MG TABLET PO PRN (11:30)
[2019-09-30] MEDS: Acetaminophen 325 MG TABLET PO PRN (18:30)
[2019-10-01] MEDS: *HR* OxyCODONE/APAP 7.5/325 TABLET PO PRN ×4 (02:05→21:28)
[2019-10-01 03:16] LABS: Calcium 8.5 mg/dL (8.6-10.3); Magnesium 1.8 mg/dL (1.6-2.6); Potassium 3.8 mEq/L (3.5-5.1)
[2019-10-01] MEDS: Acetaminophen 325 MG TABLET PO PRN ×2 (11:15→18:00)
[2019-10-01] MEDS ORDERED: Bismuth Subsalicylate 120 ML ORAL SUSPENSION PO PRN (23:23)
[2019-10-02] MEDS: *HR* OxyCODONE/APAP 7.5/325 TABLET PO PRN ×2 (03:51→11:35)
[2019-10-02] MEDS: Ibuprofen 400 MG TABLET PO PRN (08:19)
[2019-10-02] MEDS: BuPROPion XL (24 HR) 150 MG TABLET PO SCH (08:19)
[2019-10-02] MEDS ORDERED: BuPROPion XL (24 HR) 150 MG TABLET PO SCH (09:00)
[2019-10-02] MEDS: hydroCHLOROthiazide 25 MG TABLET PO SCH (11:35)
[2019-10-02] MEDS: Acetaminophen 325 MG TABLET PO PRN (19:14)
[2019-10-03] MEDS ORDERED: *HR* Metoprolol 5 MG/5 ML VIAL IVP ONE (02:06)
[2019-10-03] MEDS: *HR* OxyCODONE/APAP 7.5/325 TABLET PO PRN ×3 (02:39→19:02)
[2019-10-03 05:27] LABS: BUN/Creatinine Ratio 13 (6-26); Blood Urea Nitrogen 14 mg/dL (6-20); Calcium 9.2 mg/dL (8.6-10.3); Carbon Dioxide 25 mEq/L (23-29); Chloride 103 mEq/L (98-107); Glucose 160 mg/dL (70-105); Osmolality,Calculated 302 (280-300); Potassium 3.3 mEq/L (3.5-5.1); Sodium 144 mEq/L (136-145); eGFR For African Americans > 60 (> 60); eGFR For Non-African Americans 53 (> 60)
[2019-10-03] MEDS: hydroCHLOROthiazide 25 MG TABLET PO SCH (07:41)
[2019-10-03] MEDS: BuPROPion XL (24 HR) 150 MG TABLET PO SCH ×2 (07:42→11:40)
[2019-10-03] MEDS: Ibuprofen 400 MG TABLET PO PRN (07:42)
[2019-10-03] MEDS: amLODIPine 5 MG TABLET PO SCH (09:27)
[2019-10-04] MEDS: *HR* OxyCODONE/APAP 7.5/325 TABLET PO PRN ×2 (00:34→08:50)
[2019-10-04 05:13] LABS: BUN/Creatinine Ratio 14 (6-26); Blood Urea Nitrogen 15 mg/dL (6-20); Calcium 9.3 mg/dL (8.6-10.3); Carbon Dioxide 27 mEq/L (23-29); Chloride 103 mEq/L (98-107); Glucose 193 mg/dL (70-105); Magnesium 1.9 mg/dL (1.6-2.6); Osmolality,Calculated 298 (280-300); Potassium 3.4 mEq/L (3.5-5.1); Sodium 141 mEq/L (136-145); eGFR For African Americans > 60 (> 60); eGFR For Non-African Americans 55 (> 60)
[2019-10-04] MEDS: amLODIPine 5 MG TABLET PO SCH (08:50)
[2019-10-04] MEDS: BuPROPion XL (24 HR) 150 MG TABLET PO SCH ×2 (08:51→11:14)
[2019-10-04] MEDS: tiZANidine 4 MG TABLET PO PRN (11:14)
[2019-10-05] MEDS: tiZANidine 4 MG TABLET PO PRN ×2 (00:22→11:12)
[2019-10-05 07:37] VITALS: BP 125/84
[2019-10-05] MEDS: BuPROPion XL (24 HR) 150 MG TABLET PO SCH ×2 (08:47→13:25)
[2019-10-05] MEDS: amLODIPine 5 MG TABLET PO SCH (08:48)
[2019-10-05] MEDS: *HR* OxyCODONE/APAP 7.5/325 TABLET PO PRN (08:51)
== END 2019-10-05 17:16 | disposition home or self-care (01) | DRG 312 ==
LOC: EMEROOARM 11:57 → ICNU 11:57 → SUATTDRO 16:18 → ICNU 19:54 → 3ANU 09-29 18:15
PROVIDERS: ADMIT Pediatrics; ATTEND Internal Medicine

== ENCOUNTER 2021-06-12 10:47 | Inpatient (IN) ==
[2021-06-12] MEDS ORDERED: *HR* FentaNYL (PF) 100 MCG/2 ML VIAL ONE (11:30)
[2021-06-12] MEDS ORDERED: *HR* Propofol 200 MG/20 ML VIAL IVP ONE (11:30)
[2021-06-12] MEDS ORDERED: *HR* Midazolam HCl 2 MG/2 ML VIAL ONE (11:30)
[2021-06-12] MEDS ORDERED: Ondansetron 4 MG/2 ML VIAL ONE (11:31)
[2021-06-12] MEDS ORDERED: *HR* Succinylcholine 200 MG/10 ML VIAL IVP ONE (11:31)
[2021-06-12] MEDS ORDERED: Lidocaine HCL 4 ML Topical Solution (Laryng-O-Jet Kit Sterile Pak) TP ONE (11:31)
[2021-06-12] MEDS ORDERED: Lidocaine -MPF 2% 2 ML VIAL ONE (11:31)
[2021-06-12] MEDS ORDERED: *HR* Rocuronium Bromide 50 MG/5 ML VIAL ONE (11:31)
[2021-06-12] MEDS ORDERED: CeFAZolin Syr 2,000MG/20 ML 2,000 MG/20 ML SYRINGE IVPB ONE (12:01)
[2021-06-12] MEDS ORDERED: Ringers Solution, Lactated 1,000 ML IVC SCH (12:15)
[2021-06-12] MEDS ORDERED: Dexmedetomidine HCl 400 MCG/100 ML MLS IVC ONE (13:00)
[2021-06-12] MEDS ORDERED: EPHEDrine 50 MG/ML VIAL ONE (13:17)
[2021-06-12] MEDS ORDERED: *HR* HYDROMORPHONE 2 MG/ML VIAL ONE (13:44)
[2021-06-12] MEDS ORDERED: *HR* FentaNYL (PF) 100 MCG/2 ML VIAL IVP PRN (14:10)
[2021-06-12] MEDS ORDERED: *HR* OxyCODONE Immed Rel 5 MG TABLET PO PRN (14:10)
[2021-06-12] MEDS ORDERED: Promethazine 6.25 MG in Water for inj. (sterile) 20 ML IVPB PRN (14:10)
[2021-06-12] MEDS ORDERED: Ketorolac 15 MG/ML VIAL IVP PRN (14:10)
[2021-06-12] MEDS: *HR* HYDROmorphone PF 0.5 MG/0.5 ML SYRINGE IVP PRN ×2 (14:44→14:53)
[2021-06-12] MEDS ORDERED: Ondansetron 4 MG/2 ML VIAL IVP PRN (15:31)
[2021-06-12] MEDS: 0.9 % Sodium Chloride 1,000 ML IVC SCH (15:50)
[2021-06-12] MEDS: *HR* Heparin 5,000 UNIT/ML VIAL SQ SCH ×2 (15:51→21:52)
[2021-06-12] MEDS: Gabapentin 100 MG CAPSULE PO SCH ×2 (16:19→20:43)
[2021-06-12] MEDS: Ipratropium/Albuterol Neb 3 ML IH SCH ×2 (16:43→20:29)
[2021-06-12] MEDS: *HR* OxyCODONE/APAP 10/325 TABLET PO PRN ×2 (17:32→21:49)
[2021-06-12] MEDS: *HR* HYDROcodone/Acet 5/325 mg TABLET PO PRN (18:42)
[2021-06-12] MEDS: Famotidine 20 MG TABLET PO SCH (20:43)
[2021-06-12] MEDS: Sennosides/Docusate Sodium TABLET PO SCH (20:43)
[2021-06-13] MEDS: Ipratropium/Albuterol Neb 3 ML IH SCH ×6 (00:05→20:02)
[2021-06-13] MEDS: *HR* HYDROcodone/Acet 5/325 mg TABLET PO PRN (01:11)
[2021-06-13] MEDS: tiZANidine 4 MG TABLET PO PRN ×2 (01:12→15:28)
[2021-06-13] MEDS: *HR* OxyCODONE/APAP 10/325 TABLET PO PRN ×3 (03:42→12:56)
[2021-06-13 03:50] LABS: Hematocrit 37.2 % (35.3-44.9); Immature Platelets 5.8 % (1.1-6.1); Mean Corpuscular HGB Conc 32.3 g/dL (31.6-35.5); Mean Corpuscular Hemoglobin 29.3 pg (28.0-33.3); Mean Corpuscular Volume 90.7 fL (83.0-100.0); Red Blood Count 4.1 M/mcL (3.82-4.97); Red Cell Distribution Width 12.1 % (11.5-14.5); White Blood Count 6.3 K/mcL (4.3-11.1)
[2021-06-13 04:07] LABS: Calcium 9.8 mg/dL (8.6-10.3); Magnesium 1.5 mg/dL (1.6-2.6); Potassium 4.7 mEq/L (3.5-5.1)
[2021-06-13] MEDS: 0.9 % Sodium Chloride 1,000 ML IVC SCH (04:50)
[2021-06-13] MEDS: *HR* Heparin 5,000 UNIT/ML VIAL SQ SCH ×3 (05:59→20:26)
[2021-06-13] MEDS: BuPROPion XL (24 HR) 150 MG TABLET PO SCH (08:05)
[2021-06-13] MEDS: Gabapentin 100 MG CAPSULE PO SCH ×3 (08:06→20:34)
[2021-06-13] MEDS: Aspirin Enteric Coated 81 MG Tablet PO SCH (08:06)
[2021-06-13] MEDS: Famotidine 20 MG TABLET PO SCH (08:06)
[2021-06-13] MEDS: lisinopriL 5 MG TABLET PO SCH (08:06)
[2021-06-13] MEDS: Loratadine 10 MG TABLET PO SCH (08:06)
[2021-06-13] MEDS: Sennosides/Docusate Sodium TABLET PO SCH ×2 (08:06→20:35)
[2021-06-13] MEDS: amLODIPine 5 MG TABLET PO SCH (08:06)
[2021-06-13] MEDS: Propranolol LA (24 HR) 60 MG CAP.SA.24H PO SCH (08:07)
[2021-06-13] MEDS ORDERED: Temazepam 15 MG CAPSULE PO PRN (08:12)
[2021-06-13] MEDS ORDERED: NON-FORMULARY MEDICATION 1 EACH EACH (Bupropion Hcl [Wellbutrin Xl] 300 MG Tab.Er.24h) PO SCH (09:00)
[2021-06-13] MEDS ORDERED: Albumin Human 5% 12.5 GM/250 ML IV.SOLN IVPB ONE (20:09)
[2021-06-14] MEDS: tiZANidine 4 MG TABLET PO PRN ×2 (00:20→09:19)
[2021-06-14] MEDS: Ipratropium/Albuterol Neb 3 ML IH SCH ×4 (00:45→10:41)
[2021-06-14] MEDS ORDERED: Albumin Human 5% 12.5 GM/250 ML IV.SOLN IVPB ONE (02:14)
[2021-06-14 04:02] LABS: Calcium 8.5 mg/dL (8.6-10.3); Potassium 3.9 mEq/L (3.5-5.1)
[2021-06-14] MEDS: *HR* Heparin 5,000 UNIT/ML VIAL SQ SCH (06:03)
[2021-06-14 07:06] VITALS: TEMP 97.6
[2021-06-14] MEDS ORDERED: Famotidine 20 MG TABLET PO SCH (09:00)
[2021-06-14] MEDS: Loratadine 10 MG TABLET PO SCH (09:18)
[2021-06-14] MEDS: Aspirin Enteric Coated 81 MG Tablet PO SCH (09:18)
[2021-06-14] MEDS: Sennosides/Docusate Sodium TABLET PO SCH (09:19)
[2021-06-14] MEDS: BuPROPion XL (24 HR) 150 MG TABLET PO SCH (09:19)
[2021-06-14] MEDS: Gabapentin 100 MG CAPSULE PO SCH (09:19)
[2021-06-14] MEDS ORDERED: amLODIPine 5 MG TABLET PO SCH (09:53)
[2021-06-14] MEDS: amLODIPine 5 MG TABLET PO SCH (09:54)
[2021-06-14] MEDS: Propranolol LA (24 HR) 60 MG CAP.SA.24H PO SCH (09:54)
[2021-06-14] MEDS: lisinopriL 5 MG TABLET PO SCH (09:54)
[2021-06-14] MEDS: *HR* OxyCODONE/APAP 10/325 TABLET PO PRN (10:06)
[2021-06-14 11:28] VITALS: BP 120/88; PULSE 66; O2SAT 96
== END 2021-06-14 12:37 | disposition home or self-care (01) | DRG 164 ==
LOC: SAMDAY 10:47 → ICNU 12:17 → 2NNU 06-13 15:12
PROVIDERS: ADMIT Thoracic Surgery (Cardiothoracic Vascular Surgery); ATTEND Thoracic Surgery (Cardiothoracic Vascular Surgery)

== ENCOUNTER 2021-11-08 22:53 | Inpatient (IN) ==
[2021-11-09] MEDS ORDERED: 0.9 % Sodium Chloride 1,000 ML IVC ONE ×2 (00:05→03:11)
[2021-11-09 02:02] LABS: Influenza A PCR Negative (Negative); Influenza B PCR Negative (Negative); Resp. Syncytial Virus PCR Negative (Negative)
[2021-11-09 02:04] LABS: Potassium 3.7 mEq/L (3.5-5.1)
[2021-11-09 02:07] LABS: SARS-CoV-2 by PCR (In House) Positive (Negative)
[2021-11-09 02:58] LABS: Basophils % 0.5 %; Hematocrit 35.3 % (35.3-44.9); Hemoglobin 11.3 g/dL (11.5-15.4); Immature Granulocytes % 1.9 % (0-4); Lymphocytes # 1.3 K/mcL (0.6-4.6); Lymphocytes % 21.7 %; Mean Corpuscular Hemoglobin 30.5 pg (28.0-33.3); Mean Corpuscular Volume 95.1 fL (83.0-100.0); Mean Platelet Volume 12.2 fL (9.4-12.4); Monocytes # 0.8 K/mcL (0.0-1.3); Monocytes % 12.7 %; Neutrophils # 3.7 K/mcL (1.6-8.9); Platelet Count 172 K/mcL (140-400); Red Blood Count 3.71 M/mcL (3.82-4.97); Red Cell Distribution Width 14.9 % (11.5-14.5); Segmented Neutrophils % 63.2 %; White Blood Count 5.9 K/mcL (4.3-11.1)
[2021-11-09] MEDS ORDERED: Ondansetron 4 MG/2 ML VIAL IVP PRN (03:53)
[2021-11-09] MEDS ORDERED: *HR* Promethazine 25 MG/ML VIAL IM PRN (03:53)
[2021-11-09] MEDS ORDERED: Naloxone 0.4 MG/ML INJ IVP PRN (03:53)
[2021-11-09] MEDS ORDERED: Melatonin 3 MG TABLET PO PRN (03:53)
[2021-11-09] MEDS ORDERED: Ringers Solution, Lactated 1,000 ML IVC SCH (04:00)
[2021-11-09] MEDS ORDERED: *HR* Heparin 5,000 UNIT/ML VIAL SQ SCH (06:00)
[2021-11-09 10:58] LABS: INR 1.3; Prothrombin Time 14.2 Seconds (9.4-12.1)
[2021-11-09 11:04] LABS: Magnesium 1.6 mg/dL (1.6-2.6); Phosphorous 3.7 mg/dL (2.7-4.5)
[2021-11-09 11:06] LABS: Albumin 3.5 g/dL (3.5-5.7); Albumin/Globulin Ratio 1.1 (1.1-2.2); Bilirubin,Direct 0.1 mg/dL (0.0-0.2); Bilirubin,Indirect 0.2 mg/dL (0.0-1.0); Bilirubin,Total 0.3 mg/dL (0.3-1.0); Globulin 3.2 g/dL (2.4-3.5); Total Protein 6.7 g/dL (6.4-8.9)
[2021-11-09] MEDS ORDERED: Ipratropium 1 PUFF INHALER IH ONE (11:27)
[2021-11-09] MEDS: Sodium Bicarbonate 75 MEQ in 0.45 % Sodium Chloride 1,000 ML IVC SCH ×2 (11:34→19:59)
[2021-11-09] MEDS: Ipratropium 1 PUFF INHALER IH SCH ×3 (11:58→19:49)
[2021-11-09] MEDS: *HR* Heparin 5,000 UNIT/ML VIAL SQ SCH (18:15)
[2021-11-09 19:19] LABS: Bilirubin,Urine Negative (Negative); Blood,Urine Negative (Negative); Clarity,Urine Clear (Clear); Color,Urine Light-Yellow (Yellow); Glucose,Urine (UA) Normal (Normal); Ketones,Urine Negative (Negative); Leukocyte Esterase,Urine Negative (Negative); Mucus,Urine Few per lpf (None-Few); Nitrite,Urine Negative (Negative); Protein,Urine 30 mg/dL (Neg-Trace); Specific Gravity,Urine 1.012 (1.010-1.025); Squamous Epithelial Cell,Urine Few per hpf (None-Few); Urobilinogen,Urine Normal (Normal)
[2021-11-09 19:25] LABS: Protein/Creatinine Ratio,Urine 0.66 mg/mg (0.00-0.20); Sodium, Urine 49.6 mEq/L
[2021-11-09] MEDS: tiZANidine 4 MG TABLET PO SCH (22:50)
[2021-11-09] MEDS: BuPROPion XL (24 HR) 150 MG TABLET PO SCH (22:50)
[2021-11-09] MEDS: Temazepam 15 MG CAPSULE PO PRN (22:50)
[2021-11-10 01:04] LABS: Hematocrit 25.8 % (35.3-44.9); Mean Corpuscular HGB Conc 32.9 g/dL (31.6-35.5); Mean Corpuscular Hemoglobin 30.2 pg (28.0-33.3); Mean Corpuscular Volume 91.8 fL (83.0-100.0); Mean Platelet Volume 11.5 fL (9.4-12.4); Platelet Count 127 K/mcL (140-400); Red Blood Count 2.81 M/mcL (3.82-4.97); Red Cell Distribution Width 14.6 % (11.5-14.5)
[2021-11-10 01:09] LABS: Hemoglobin 8.5 g/dL (11.5-15.4); White Blood Count 2.8 K/mcL (4.3-11.1)
[2021-11-10 01:23] LABS: Calcium 7.8 mg/dL (8.6-10.3); Potassium 3.1 mEq/L (3.5-5.1)
[2021-11-10] MEDS: Ipratropium 1 PUFF INHALER IH SCH ×4 (03:35→21:42)
[2021-11-10] MEDS: Sodium Bicarbonate 75 MEQ in 0.45 % Sodium Chloride 1,000 ML IVC SCH ×3 (04:15→23:24)
[2021-11-10] MEDS ORDERED: 0.9 % Sodium Chloride 500 ML IV ONE (05:00)
[2021-11-10] MEDS: *HR* Heparin 5,000 UNIT/ML VIAL SQ SCH ×2 (05:06→17:15)
[2021-11-10] MEDS: Acetaminophen 325 MG TABLET PO PRN (05:06)
[2021-11-10] MEDS ORDERED: Albumin 25% 25gram/100mL 25 GM/100 ML IV.SOLN IVPB ONE (08:32)
[2021-11-10] MEDS: BuPROPion XL (24 HR) 150 MG TABLET PO SCH (09:09)
[2021-11-10 10:07] LABS: Hematocrit 24.8 % (35.3-44.9); Mean Corpuscular HGB Conc 32.3 g/dL (31.6-35.5); Mean Corpuscular Hemoglobin 29.9 pg (28.0-33.3); Mean Corpuscular Volume 92.5 fL (83.0-100.0); Mean Platelet Volume 11.4 fL (9.4-12.4); Platelet Count 111 K/mcL (140-400); Red Blood Count 2.68 M/mcL (3.82-4.97); Red Cell Distribution Width 14.6 % (11.5-14.5); White Blood Count 2.9 K/mcL (4.3-11.1)
[2021-11-10] MEDS: *HR* HYDROcodone/Acet 5/325 mg TABLET PO PRN ×2 (13:58→20:57)
[2021-11-10] MEDS: tiZANidine 4 MG TABLET PO SCH (20:43)
[2021-11-11] MEDS: Ipratropium 1 PUFF INHALER IH SCH ×4 (04:01→23:22)
[2021-11-11] MEDS: *HR* Heparin 5,000 UNIT/ML VIAL SQ SCH ×2 (05:36→17:22)
[2021-11-11 06:40] LABS: Hematocrit 27.2 % (35.3-44.9); Hemoglobin 8.6 g/dL (11.5-15.4); Mean Corpuscular HGB Conc 31.6 g/dL (31.6-35.5); Mean Corpuscular Hemoglobin 29.4 pg (28.0-33.3); Mean Corpuscular Volume 92.8 fL (83.0-100.0); Mean Platelet Volume 11.8 fL (9.4-12.4); Platelet Count 122 K/mcL (140-400); Red Blood Count 2.93 M/mcL (3.82-4.97); Red Cell Distribution Width 14.5 % (11.5-14.5); White Blood Count 2.6 K/mcL (4.3-11.1)
[2021-11-11 06:55] LABS: Calcium 7.2 mg/dL (8.6-10.3)
[2021-11-11] MEDS: Sodium Bicarbonate 75 MEQ in 0.45 % Sodium Chloride 1,000 ML IVC SCH ×2 (09:17→18:40)
[2021-11-11] MEDS: *HR* HYDROcodone/Acet 5/325 mg TABLET PO PRN ×2 (09:18→21:14)
[2021-11-11] MEDS: BuPROPion XL (24 HR) 150 MG TABLET PO SCH (09:18)
[2021-11-11] MEDS: Acetaminophen 325 MG TABLET PO PRN (12:16)
[2021-11-11] MEDS: tiZANidine 4 MG TABLET PO SCH (21:13)
[2021-11-11] MEDS: Temazepam 15 MG CAPSULE PO PRN (21:14)
[2021-11-12 02:36] LABS: Hemoglobin 8.8 g/dL (11.5-15.4); Mean Corpuscular HGB Conc 32.6 g/dL (31.6-35.5); Mean Corpuscular Hemoglobin 30.3 pg (28.0-33.3); Mean Corpuscular Volume 93.1 fL (83.0-100.0); Mean Platelet Volume 11.9 fL (9.4-12.4); Platelet Count 130 K/mcL (140-400); Red Cell Distribution Width 14.5 % (11.5-14.5); White Blood Count 2.3 K/mcL (4.3-11.1)
[2021-11-12 02:53] LABS: Calcium 6.4 mg/dL (8.6-10.3); Potassium 2.8 mEq/L (3.5-5.1)
[2021-11-12] MEDS: Ipratropium 1 PUFF INHALER IH SCH ×4 (03:38→23:34)
[2021-11-12] MEDS: Sodium Bicarbonate 75 MEQ in 0.45 % Sodium Chloride 1,000 ML IVC SCH ×2 (04:23→07:32)
[2021-11-12] MEDS: *HR* Heparin 5,000 UNIT/ML VIAL SQ SCH ×2 (04:24→15:32)
[2021-11-12] MEDS: BuPROPion XL (24 HR) 150 MG TABLET PO SCH (09:19)
[2021-11-12] MEDS: tiZANidine 4 MG TABLET PO SCH (19:47)
[2021-11-12] MEDS: *HR* HYDROcodone/Acet 5/325 mg TABLET PO PRN (19:48)
[2021-11-13 02:42] LABS: Hemoglobin 8.9 g/dL (11.5-15.4)
[2021-11-13 02:58] LABS: Calcium 6.3 mg/dL (8.6-10.3); Potassium 3.2 mEq/L (3.5-5.1)
[2021-11-13] MEDS: Ipratropium 1 PUFF INHALER IH SCH ×2 (03:44→11:25)
[2021-11-13] MEDS: *HR* Heparin 5,000 UNIT/ML VIAL SQ SCH (05:19)
[2021-11-13] MEDS: BuPROPion XL (24 HR) 150 MG TABLET PO SCH (09:16)
[2021-11-13 10:58] VITALS: BP 120/74; PULSE 67; TEMP 98.2; O2SAT 95
== END 2021-11-13 13:33 | disposition home or self-care (01) | DRG 178 ==
LOC: 3BNU 22:53 → EMEROOARM 22:53 → 3BNU 11-09 07:44
PROVIDERS: ADMIT Internal Medicine; ATTEND Internal Medicine